=== PATIENT | male | born 1950 | race Caucasian/White ===

== ENCOUNTER → 2018-03-30 | Outpatient (CLI) | payer OTHER, BC ==
[~2018-03-30] MED LIST: ASPI325T4 PO; ATEN50TA8 PO; CITA20TA9 PO; GLC/500 PO; HYDR2.5C37; IBUP-1277 PO; IMD2X PO; PRT/20 PO; TOPI25TA55 PO; VICODIN PO
--- NOTE | 2018-03-30 17:00 | DIAGNOSTIC IMAGING REPORT ---
CHEST 2 VIEWS ROUTINE CLINICAL HISTORY: 67 years-old Male presenting with R05 Chronic [id number]. TECHNIQUE: PA and lateral views of the chest were obtained. COMPARISON: 09/06/2012. FINDINGS: Atherosclerosis of the aortic arch. Tortuosity of the thoracic aorta. Cardiac silhouette normal in size. Mild hyperinflation. No focal opacity. No pleural effusion or pneumothorax. Degenerative changes of the thoracic spine. Cholecystectomy clips noted. IMPRESSION: 1. Findings suggest emphysema. No focal infiltrate to suggest pneumonia. Electronically signed by: Sergo Abreu M.D. 03/30/2018 4:58 PM Dictated Date/Time: 03/30/2018 4:58 PM
== END | disposition home or self-care (01) ==
LOC: C.RAD1850 15:34
PROVIDERS: ATTEND Physician Assistant
DX: R05 Cough (principal)

== ENCOUNTER 2024-03-16 05:30 | Inpatient (IN) ==
--- NOTE | 2024-02-16 13:35 | Anesthesiology Consultation ---
Date of Service February 16, 2024 Assessment & Plan (1) Encounter for pre-operative examination: - Check BSG AM DOS - Infectious disease screening: Per assessment on 02/10/24: No known recent infectious disease contacts or current infectious disease symptoms. - Cardiology visit (10/21/23): "Coronary artery disease: No current symptoms. he is mainly limited by dyspnea. No concerning chest pains. Will continue aggressive secondary prevention with daily aspirin and atorvastatin. History of bradycardia and intolerance to beta-blockers.. Blood pressure actually good when measured in clinic today.. Aortic root dilation: Measured 4.2 cm. Stable.. Bradycardia: Normal rate today. Intolerance previously to beta-blockade.. Abdominal aortic aneurysm: We will repeat ultrasound.. TIA: Reported as lacunar strokes. No actual infarct. Less likely to be related atrial fibrillation. Outpatient monitoring did not reveal atrial fibrillation or concerning arrhythmia. Some mention of SVT and transient VT. However, no symptoms." - Preop BMP done 02/10/24 at [facility] hemolyzed. Per Jesus at surgeon's office, Haley Alaniz PAC aware and requests PAT arrange obtaining repeat BMP preoperatively. BMP order faxed to [facility] lab per patient request (lab confirmed with [facility] secretary office clerk that order was received)- to have done "in near future" per patient. Patient acceptable risk for given surgery pending preop BMP ([facility] lab). Chart Review Chart Review: Patient seen in Pre Admission Testing (02/10/24) History Surgery Operation Date: 03/16/24 09:45 Proposed Procedures p Percutaneous Endovascular Repair - Brian Reid MD Height/Weight Height: 5 ft 9 in Weight: 104.326 kg Allergies Allergy/AdvReac Type Severity Reaction Status Date / Time bee venom protein (honey bee) Allergy Severe Anaphylaxis Verified 02/16/24 10:33 adhesive tape Allergy Mild Rash Verified 02/16/24 10:33 house dust mite Allergy Mild sneezing, Verified 02/16/24 10:33 watery eyes budesonide [From Symbicort] Allergy Unknown Unknown Verified 02/16/24 10:33 formoterol [From Symbicort] Allergy Unknown Unknown Verified 02/16/24 10:33 simvastatin Allergy Unknown Unknown Verified 02/16/24 10:33 vardenafil [From Levitra] Allergy Unknown Unknown Verified 02/16/24 10:33 Medications Home Medications Medication Instructions Recorded Confirmed Last Taken aspirin 81 mg tablet,delayed 81 mg PO QAM 08/06/18 02/16/24 10/06/21 release (Kari Low Dose Aspirin) citalopram 10 mg tablet 10 mg PO QAM 08/06/18 02/16/24 10/08/21 loperamide 2 mg capsule 2 mg PO Q3H PRN Diarrhea 08/06/18 02/16/24 Unknown pantoprazole 40 mg tablet,delayed 40 mg PO BID 08/06/18 02/16/24 10/07/21 release Lactobacillus 2 - 3 cap PO BID 06/07/19 02/16/24 10/07/21 acidophilus-Bifidobac.animalis 31 billion cell capsule nitroglycerin 0.4 mg sublingual 0.4 mg sublingual Q5M PRN Chest 06/07/19 02/16/24 Unknown tablet Pain nebulizers #1 ea 07/01/19 02/10/24 Unknown chlorpheniramine maleate 4 mg 4 mg PO Q6H PRN Allergy Symptoms 04/17/20 02/16/24 Unknown tablet (Allergy Relief (chlorpheniramine)) tiotropium bromide 2.5 2 inh inhalation QAM 03/29/21 02/16/24 10/06/21 mcg/actuation mist for inhalation (Spiriva Respimat) CPAP Machine #1 ea 04/23/21 02/10/24 Unknown acetaminophen 325 mg tablet 975 mg PO TID 09/27/21 02/16/24 Unknown amlodipine 5 mg tablet 5 mg PO QAM 09/27/21 02/16/24 10/08/21 fluticasone propionate 50 1 spray intranasal DAILY PRN 09/27/21 02/16/24 10/06/21 mcg/actuation nasal Allergy Symptoms spray,suspension (Flonase Allergy Relief) ipratropium 0.5 mg-albuterol 3 mg 3 ml inhalation TID PRN Shortness 09/27/21 02/16/24 10/06/21 (2.5 mg base)/3 mL nebulization Of Breath soln losartan 50 mg tablet 100 mg PO QAM 09/27/21 02/16/24 10/08/21 multivitamin 1 tab PO QAM 09/27/21 02/16/24 10/07/21 triamcinolone acetonide 0.1 % 1 applic topical DAILY 04/14/23 02/16/24 Unknown topical cream atorvastatin 40 mg tablet 40 mg PO HS 10/21/23 02/16/24 Unknown ibuprofen 200 mg tablet (Motrin IB) 200 mg PO BID 10/21/23 02/16/24 Unknown Cbd Oil 2 - 3 drp PO HS 02/10/24 02/16/24 Unknown Mucinex 1 tab PO DAILY PRN Congestion 02/10/24 02/16/24 Unknown metformin 500 mg tablet 500 mg PO BID 02/10/24 02/16/24 Unknown Past Medical History Medical History AAA (abdominal aortic aneurysm) Abdomen/Pelvis CT 01/2024: AAA measures up to 5.7 x 4.5 cm, just proximal to the bifurcation Anxiety and depression Aortic root dilation Barretts esophagus BPH with obstruction/lower urinary tract symptoms CAD (coronary artery disease) Stents x2 (2014) Chronic kidney disease (CKD) Per records Diabetes mellitus, type 2 NIDDM Gastric cancer 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, multiple endoscopic resections, s/p [facility] GERD (gastroesophageal reflux disease) History of [place] (myocardial infarction) 2014 Hx of agent [place] exposure Hx of colonic polyps Hx of renal calculi Hyperlipidemia Hypertension Lumbar stenosis Melanoma Facial, s/p excision NICKI (obstructive sleep apnea) 2L O2 + CPAP HS PTSD (post-traumatic stress disorder) Pulmonary emphysema Scrotal mass No surgical intervention recommended, under surveillance Venous insufficiency Past Family History Family History Father Cirrhosis Mother Alzheimer disease Other No family history of adverse response to anesthesia Past Surgical History Surgical History H/O lumbosacral spine surgery History of anesthesia reaction "Tends to get a lot of mucous buildup in throat during procedures" History of cardiac cath 2015- stents x2 History of esophagogastroduodenoscopy (EGD) History of lumbar spinal fusion L4-L5 History of tooth extraction History of uvulopalatopharyngoplasty 30 years ago Hx of arthroscopy of shoulder right Hx of bilateral cataract extraction Hx of cholecystectomy Hx of colonoscopy Hx of lithotripsy Hx of melanoma excision Face Hx of shoulder surgery right Social History Smoking Status: Current every day smoker tobacco type: cigarettes Smoking cigarettes per day: 20 Do You Dip or Chew Tobacco: No Hx Alcohol Use: Yes (quit 40 years ago) Hx Substance Use: Yes (quit 40 years ago) substance use type: former substance user, marijuana, crack/cocaine, sedatives and methamphetamine Review of Systems *ROS Per PAT visit 02/10/24* COPD exacerbation 10/2023- s/p abx/solu-medrol. Patient notes resolution in symptoms and denies shortness of breath, cough or wheezing at PAT visit 02/11/24. Chest CT done 02/02/24- "There is no pneumothorax or pleural effusion. There is moderate emphysema. No consolidation is identified to suggest pneumonia." Patient denies chest pain, fever, chills, palpitations. Physical Exam *Vitals + Physical exam Per PAT visit 02/10/24* Vitals BP 120/70 P 60 TEMP 97.7 SP02 95%RA RESP 16 Physical Mildly decreased cervical extension range of motion. Full TMJ range of motion. TMD 3 finger breaths Mallampati Score 3 (macroglossia) Dentition: full upper/lower plates with implants Lungs: course breath sounds Cardiac: regular rate and rhythm, distant heart sounds Spine: normal Carotid arteries: negative bruit Extremities: no LE edema Lab Results Anesthesia Preop Results Results Anesthesia Widget: WBC 6.38 K/ul (4.8-10.8) 02/10/24 Hgb 15.1 g/dl (14.0-18.0) 02/10/24 Hct 45.6 % (42.0-52.0) 02/10/24 Plt 229 K/uL (130-400) 02/10/24 PT 11.0 Seconds (9.0-12.0) 02/10/24 PTT 27 Seconds (21-31) 02/10/24 INR 1.0 (0.9-1.1) 02/10/24 Blood Type O Positive 02/10/24 Antibody Screen NEGATIVE 02/10/24 Testing Laboratory Results HGBA1C (10/21/23): 7.2% Electrocardiogram Date: 11/19/23 SR with first degree AVB at 95bpm. Anteroseptal infarct (cited on or before 03/25/2023 per [employer] [facility] comparison. Echo done 07/2023). Echocardiogram Date: 08/06/23 EF 55-60%. No interatrial shunt. LV wall motion is normal. Mild concentric LVH. Grade 1 diastolic dysfunction. Focal thickening of the basal septum with no evidence of LV outflow obstruction. Mild MR. Other Testing Abdomen/Pelvis CT Date: 02/02/24 1. Abdominal aortic aneurysm, as described above. The aorta measures up to 5.7 x 4.5 cm, just proximal to the bifurcation. Aneurysmal dilatation of the bilateral common iliac arteries. Extensive aortoiliac atherosclerotic plaque. 2. Extensive colonic diverticulosis. No evidence for acute diverticulitis. 3. Left nephrolithiasis. 7 mm suspected bladder calculus. Less likely, this calculus could be at the right ureterovesical junction. No hydronephrosis. Low dose Lung CT Date: 02/02/24 FINDINGS: Unremarkable thyroid. There are no pathologically enlarged axillary, mediastinal or hilar lymph nodes. There is no pericardial effusion. Size the heart is normal. Extensive coronary calcification is again noted. Fusiform dilation of the ascending thoracic aorta measures 4.3 cm, unchanged. There is no pneumothorax or pleural effusion. There is moderate emphysema. No consolidation is identified to suggest pneumonia. Similar appearance of the subsegmental right basilar opacities suggestive of atelectasis/scarring. A 4 mm right upper lobe pulmonary nodule on axial image 124 is unchanged since chest CT of October 12, 2018. This is likely benign. 4 mm solid nodule the right upper lobe on image 101 series 4 previously measured 3 mm. Stable 3 mm solid nodule in the right middle lobe on image 217. No new pulmonary nodules are present. IMPRESSION: Emphysema with subsegmental right basilar opacities favor atelectasis versus scarring. There are a few low suspicion solid pulmonary nodules measuring up to 4 mm. Fusiform dilation of the ascending thoracic aorta, 4.3 cm.
[2024-03-16 06:13] LABS: BUN Creatinine Ratio 15.6 (10-20); Calcium 10.3 mg/dl (8.6-10.3); Creatinine Clr Calc Pharmacy 58.9 ml/min; Est GFR (Non-African American) 54.4 ml/min; Potassium 4.1 mmol/L (3.5-5.1)
[2024-03-16] MEDS: LACTATED RINGER'S 1,000 ML BAG IV SCH (06:55)
[2024-03-16] MEDS ORDERED: fentaNYL citrate PF 100 MCG/2 ML VIAL ONE ×3 (07:18→09:45)
[2024-03-16] MEDS ORDERED: ALBUMIN HUMAN 5% 12.5 GM/250 ML VIAL IV ONE (07:23)
[2024-03-16] MEDS ORDERED: ROCURONIUM BROMIDE 10 MG/ML 5 ML VIAL IV ONE ×2 (07:41→09:25)
[2024-03-16] MEDS ORDERED: LIDOCAINE 2% 2 ML VIAL/AMP(20MG/ML) INFIL ONE (07:41)
[2024-03-16] MEDS ORDERED: PROPOFOL IV EMULSION 10 MG/ML 20 ML VIAL IV ONE (07:41)
--- NOTE | 2024-03-16 07:43 | History & Physical Report ---
Date of Service March 16, 2024 Assessment & Plan (1) AAA (abdominal aortic aneurysm) without rupture: Plan: Patient is admitted for a PEvar of his AAA. I have discussed the risks options and benefits of the procedure with the patient. The patient understands the risks options and benefits and agrees to the procedure. History of Present Illness Chief Complaint: AAA Primary Care Provider: Lucio Mercado MD Mr. Kwon is an elderly male who presents to vascular surgery clinic in consultation for abdominal aortic aneurysm. Patient is known about this for a number of years, and has been undergoing regular surveillance ultrasounds of this. He had a recent surveillance ultrasound which demonstrated his aneurysm to have grown to 5.8 cm in its largest diameter. The last measurement of record is an aortoiliac ultrasound performed in 2021, at which time it measured 4.4 cm. Patient denies any complaints or concerns at this time. He states that he will occasionally get some bilateral knee pain, and that he occasionally gets some shortness of breath with exertion, but otherwise feels that he is in his usual state of health. He does have known emphysema, possibly COPD. He also has a history of obstructive sleep apnea and coronary disease. He denies headache, fever, chest pain, shortness of breath, abdominal pain, nausea, vomiting, rest pain, claudication, nonhealing wounds or ulcers, edema, other complaints. Allergies Allergy/AdvReac Type Severity Reaction Status Date / Time bee venom protein (honey bee) Allergy Severe Anaphylaxis Verified 03/16/24 05:55 adhesive tape Allergy Mild Rash Verified 03/16/24 05:55 house dust mite Allergy Mild sneezing, Verified 03/16/24 05:55 watery eyes budesonide [From Symbicort] Allergy Unknown Unknown Verified 03/16/24 05:55 formoterol [From Symbicort] Allergy Unknown Unknown Verified 03/16/24 05:55 simvastatin Allergy Unknown Unknown Verified 03/16/24 05:55 vardenafil [From Levitra] Allergy Unknown Unknown Verified 03/16/24 05:55 Home Medications Medication Instructions Recorded Confirmed Type aspirin 81 mg tablet,delayed 81 mg PO QAM 08/06/18 03/16/24 History release (Kari Low Dose Aspirin) citalopram 10 mg tablet 10 mg PO QAM 08/06/18 03/16/24 History loperamide 2 mg capsule 2 mg PO Q3H PRN Diarrhea 08/06/18 03/16/24 History pantoprazole 40 mg tablet,delayed 40 mg PO BID 08/06/18 03/16/24 History release Lactobacillus 2 - 3 cap PO BID 06/07/19 03/16/24 History acidophilus-Bifidobac.animalis 31 billion cell capsule nitroglycerin 0.4 mg sublingual 0.4 mg sublingual Q5M PRN Chest 06/07/19 03/16/24 History tablet Pain nebulizers #1 ea 07/01/19 03/02/24 Rx chlorpheniramine maleate 4 mg 4 mg PO Q6H PRN Allergy Symptoms 04/17/20 03/16/24 History tablet (Allergy Relief (chlorpheniramine)) tiotropium bromide 2.5 2 inh inhalation QAM 03/29/21 03/16/24 History mcg/actuation mist for inhalation (Spiriva Respimat) CPAP Machine #1 ea 04/23/21 03/02/24 Rx acetaminophen 325 mg tablet 975 mg PO TID 09/27/21 03/16/24 History amlodipine 5 mg tablet 5 mg PO QAM 09/27/21 03/16/24 History fluticasone propionate 50 1 spray intranasal DAILY PRN 09/27/21 03/16/24 History mcg/actuation nasal Allergy Symptoms spray,suspension (Flonase Allergy Relief) ipratropium 0.5 mg-albuterol 3 mg 3 ml inhalation TID PRN Shortness 09/27/21 03/16/24 History (2.5 mg base)/3 mL nebulization Of Breath soln losartan 50 mg tablet 100 mg PO QAM 09/27/21 03/16/24 History multivitamin 1 tab PO QAM 09/27/21 03/16/24 History triamcinolone acetonide 0.1 % 1 applic topical DAILY 04/14/23 03/16/24 History topical cream atorvastatin 40 mg tablet 40 mg PO HS 10/21/23 03/16/24 History ibuprofen 200 mg tablet (Motrin IB) 200 mg PO BID 10/21/23 03/16/24 History Cbd Oil 2 - 3 drp PO HS 02/10/24 03/16/24 History Mucinex 1 tab PO DAILY PRN Congestion 02/10/24 03/16/24 History metformin 500 mg tablet 500 mg PO BID 02/10/24 03/16/24 History Past Med/Surg History Problem List (Updated 03/16/24 @ 07:43 by Brian Reid MD) AAA (abdominal aortic aneurysm) without rupture Hypomagnesemia Elevated PSA Medical History Lumbar stenosis History of [place] (myocardial infarction) 2015 Aortic root dilation CAD (coronary artery disease) Stents x2 (2014) Venous insufficiency Scrotal mass No surgical intervention recommended, under surveillance Pulmonary emphysema PTSD (post-traumatic stress disorder) NICKI (obstructive sleep apnea) 2L O2 + CPAP HS Hx of agent [place] exposure Hypertension Hyperlipidemia Hx of colonic polyps GERD (gastroesophageal reflux disease) Diabetes mellitus, type 2 NIDDM Chronic kidney disease (CKD) Per records BPH with obstruction/lower urinary tract symptoms Barretts esophagus AAA (abdominal aortic aneurysm) Abdomen/Pelvis CT 01/2024: AAA measures up to 5.7 x 4.5 cm, just proximal to the bifurcation Gastric cancer 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, multiple endoscopic resections, s/p [facility] Melanoma Facial, s/p excision Hx of renal calculi Anxiety and depression Surgical History History of anesthesia reaction "Tends to get a lot of mucous buildup in throat during procedures" H/O lumbosacral spine surgery Hx of shoulder surgery right Hx of cholecystectomy History of uvulopalatopharyngoplasty 30 years ago Hx of arthroscopy of shoulder right Hx of lithotripsy Hx of melanoma excision Face Hx of bilateral cataract extraction Hx of colonoscopy History of tooth extraction History of cardiac cath 2015- stents x2 History of lumbar spinal fusion L4-L5 History of esophagogastroduodenoscopy (EGD) Family History Father Cirrhosis Mother Alzheimer disease Other No family history of adverse response to anesthesia Social History Smoking Status: Current every day smoker Tobacco Type: Cigarettes Age Started Using Tobacco: 13; packs per day: 1; Cigarettes Per Day: 20; Second Hand Exposure: No; Do You Dip or Chew Tobacco: No; Tobacco Cessation Education Requested by Patient: No Hx Alcohol Use: Yes (quit 40 years ago) Hx Substance Use: Yes (quit 40 years ago) Preferred Language: Nepali Communication Ability: Effective Diagrammer Required: No Beliefs That Will Affect Care: None marital status: Current Living Situation: Spouse Other Information That Helps Us Care for You: No Feels Safe at Home: Yes Safety Concerns: Feels Safe At This Time Assistive Devices: CPAP, Glasses, Oxygen - at Night and Other Assistive Devices Comment: implanted teeth Review of Systems All systems reviewed & are unremarkable except as noted in HPI & below Physical Exam Physical Exam: Constitutional: In general patient is obese but healthy-appearing well-nourished well-developed elderly male no distress. He is alert and oriented without any focal deficits. His trachea is midline. His carotids do not demonstrate a bruit. His heart is regular with systolic ejection murmur. His lungs are decreased throughout with coarse sounding breath sounds and moderate wheezing. His abdomen is protuberant due to body habitus and is somewhat firm but nontender. He has normoactive bowel sounds throughout. I am unable to appreciate a pulsatile mass due to body habitus. Brachial and radial pulses are +4. Femoral pulses are +3. Lower extremities a pulses are +3. He has brisk capillary refill and no sign of distal ischemia. He has trace edema of the lower legs. CT angiogram shows an infrarenal abdominal attic aneurysm measuring 5.8 cm in size. It does have a good neck conducive for endograft repair. Results & Data Vital Signs (Past 12 Hours) Vital Signs Temp Pulse Resp BP Pulse Ox O2 Del Method 03/16/24 06:00 Room Air 03/16/24 05:47 36.7 C 60 20 155/99 H 94 Room Air
[2024-03-16] MEDS: CEFAZOLIN 2,000 MG/15 ML SYR IV SCH (07:48)
[2024-03-16] MEDS ORDERED: ESMOLOL HCL INJ 10 MG/ML 10ML VIAL IV ONE (08:46)
[2024-03-16] MEDS ORDERED: HEPARIN SOD (PORCINE) 1000 UNIT/ML ONE (08:46)
[2024-03-16] MEDS ORDERED: PHENYLEPHRINE HCL 25 MG/250 ML NSS IV ONE (09:12)
[2024-03-16] MEDS ORDERED: NITROGLYCERIN/D5W 100 MCG/ML BTL ONE (09:15)
[2024-03-16] MEDS ORDERED: DEXAMETHASONE SOD INJ 4 MG/ML VIAL ONE (09:19)
[2024-03-16] MEDS ORDERED: ePHEDrine sulfate 50 MG/5 ML SYR ONE (09:50)
[2024-03-16] MEDS ORDERED: LABETALOL HCL IV 5 MG/ML 20ML IV ONE (10:05)
[2024-03-16] MEDS ORDERED: SUGAMMADEX SODIUM 200 MG/2 ML VIAL IV ONE ×2 (10:15→10:16)
--- NOTE | 2024-03-16 10:39 | Procedure Note ---
Angiogram Post Procedure Fluoroscopy Time (minutes): 31.2 Radiation (mGy): 982 Contrast: 90 Post Operative Report Pre & Post Diagnosis Operation Date: 03/16/24 07:30 Pre-Op Diagnosis: Abdominal Aortic Aneurysm, Without Rupture Post-Op Diagnosis: Abdominal Aortic Aneurysm, Without Rupture I identified the patient and participated in the time-out.: Yes Procedure Operation Date: 03/16/24 07:30 Actual Procedures p Percutaneous Endovascular Aneurysm Repair, Right Iliac Extension, Mechanical Closure of Left Femoral Artery, Right common femoral artery exposure - Brian Reid MD Surgeon Brian Reid MD Stack Clerk Monico,PAC Estimated Blood Loss 200 Findings Consistent with Post-Op Diagnosis Specimens none Anesthesia Type General Complications none Disposition Accompanied Patient To Recovery: No Disposition: Recovery Room Indications This is a 73-year-old gentleman who was found to have a 5.8 cm. Endovascular repair is recommended. I have discussed the risks options and benefits of the procedure with the patient. The patient understands the risks options and benefits and agrees to the procedure. Description of Procedure The patient was brought to the OR and placed in supine position. Patient was intubated and general anesthesia was accomplished. A safety timeout was performed to identify patient's name, date of and the correct procedure. Abdomen and groins were prepped and draped in sterile fashion. Ultrasound guided percutaneous access of the right groin was performed. The right common femoral artery was patent. A percutaneous puncture was made in the right common femoral artery using ultrasound. The depth finder for the Manta device was used to measure the depth of the puncture. It was found to be 6 cm. The depth finder was removed and the 8 [place] sheath inserted. We turned our attention to the left side and we similarly accessed the left common femoral artery. The left common femoral artery was patent. Using ultrasound left common femoral artery was punctured. The depth finder was used to measure the depth of the puncture of the left side and also found to be 7 cm from the skin edge. This was removed and 8 [place] sheath was inserted. Patient was heparinized with 9000 of IV heparin. Through the right groin, we advanced a soft Glidewire followed by a Kumpe catheter. The wire then was exchanged for a stiff Lunderquist wire. We then cannulated the aorta from the left side using 035 Glidewire and a Kumpe catheter. Once this was placed in the super renal aorta the wire was exchanged to a Cem wire.. We then upsized our access on the right side with a 14 [place] African dilator and subsequently to 18 [place] African dry seal sheath. The left groin sheath was then exchanged to a 16 [place] dry seal sheath after dilating with a 12 South African. The sheaths were advanced all the way up in the aortic sac. A marker pig was inserted to the left groin. Aortography was performed. The level of the renal arteries were marked on the screen. This showed patency of both renal arteries and a acceptable neck for deployment of the graft. We advanced the device (Aurora excluder conformable 36 mm x 14.5 mm x 14 cm) through the right sheath. The shaft of the graft was then deployed. An aortogram was performe d. Both renal arteries were visualized just above the top of the deployed graft. Aortogram confirmed good location of the proximal end of the graft. The hooks were then deployed. Cannulation of the gate was then attempted using an 035 glidewire and a Kumpke catheter. The gate cannulated therefore tried a symptoms followed by JB2 catheter. Again the date cannot be cannulated. We then deployed the right limb of the graft device. Inserted 035 wire through the right side followed by the same catheter. The contralateral gate was cannulated with a wire from the right side and passed into the sac. A snare was inserted through the left-sided sheath. The wire was snared and brought out through the left groin. The cath was inserted to the left side and advanced up into the graft. The wire was pulled out. It was advanced into the main body. It spun easily. The Lunderquist wire was then reinserted. A marker pigtail was then inserted over the Plunkett wire. The 16 [place] sheath was then pulled down into the external iliac and an arteriogram was performed of the left iliac system. This identified the origin of the hypogastric and the left side. We then removed the pigtail. We reinserted a 16 [place] African sheath dilator and advanced the sheath into the gate of the graft. We then inserted an 16mm x 27 mm x 12 contralateral limb. The 16 [place] sheath was then pulled down to below the level of the contralateral limb. Contralateral limb was then deployed without difficulty. The 18 [place] African sheath on the right side was then pulled down into the pelvis. Hand-injection was then performed to karen where the bifurcation of the common iliac artery was. We then chose a 16 x 27 x 10 contralateral limb to extend the right side limb. The graft was advanced to the 18 [place] African sheath. It was deployed with the distal end falling just above the iliac bifurcation. The mob balloon was then inserted through the left sheath. The proximal attachment site, the gate and the distal attachment site were ballooned with the mob balloon. The balloon was then removed. Was inserted through the right side 18 [place] African sheath and then dilated the overlap of the limbs and the distal attac hment site of the right limb. The balloon was then removed. The pigtail was then inserted through the left side to above the renal arteries. A final arteriogram was then performed which showed no evidence of a type I or II endoleak. Graft showed no evidence of narrowing throughout. An Lunderquist was then reinserted into the pigtail and the pigtail removed. The 16 [place] sheath was then pulled and a 18 [place] African Manta device was inserted. This was deployed without difficulty. No bleeding was noted after deployment. The right groin sheath was then also pulled. An 18 [place] Manta device was inserted and deployed. There was not a total seal of the right side. There is still some weakness seen and a partial take was noted. Holding off on screening of the Manta had bleeding controlled fairly well. Groin incision was then made. This was carried out where the puncture site was noted. There is a small area to the right side of the Manta which was bleeding and that superiorly sealed with a Manta device. The compromised and clamped proximal to the stent. The Manta plug was removed with a footplate. The defect of the artery was repaired with a 5-0 Prolene suture. Hemostasis was noted. Good distal flow was seen. Wound was then closed in the usual fashion with a running 2-0 Vicryl suture and femoral sheath and 3-0 Vicryl for subcutaneous layer joyce for the skin. Prev darren dressing was used for the incision on the right side. Sterile dressings were applied to the wound on the left groin. The patient left the operation room in satisfactory condition and tolerated the procedure well. All needle and sponge counts were correct at the end of the procedure. Haley Alaniz Pac assisted due to lack of resident availability and was necessary for positioning, draping, retraction, wound closure deep layers, subcutaneous tissue, and skin closure and was necessary for assisting with the case. I attest to the content of the Intraoperative Record and any orders documented therein. Any exceptions are noted below.
[2024-03-16] MEDS: VISIPAQUE IV PRN (11:14)
[2024-03-16 11:18] LABS: Hematocrit (blood only) 42.8 % (42.0-52.0); Hemoglobin 14.4 g/dl (14.0-18.0)
[2024-03-16] MEDS: ALBUTEROL 0.083% NEBU SOLN 3 ML VIAL ONE (11:22)
[2024-03-16] MEDS ORDERED: ALBUTEROL 0.083% NEBU SOLN 3 ML VIAL NEB PRN (11:25)
[2024-03-16] MEDS ORDERED: ALBUT/IPRATROP 3MG/0.5MG NEB 3 ML VIAL INH PRN (12:59)
[2024-03-16] MEDS ORDERED: NON-FORMULARY MEDICATION (Cpap Machine misc) SCH (12:59)
[2024-03-16] MEDS ORDERED: MoRPHine SULFATE 4 MG/ML 1 ML CARP\\VIAL IV PRN (12:59)
[2024-03-16] MEDS ORDERED: LOPERAMIDE HCL 2 MG CAP PO PRN (12:59)
[2024-03-16] MEDS ORDERED: NITROGLYCERIN SL 0.4 MG/TAB TAB SL PRN (12:59)
[2024-03-16] MEDS ORDERED: PHARMACY GLYCEMIC MGMT CONSULT PRN (12:59)
[2024-03-16] MEDS ORDERED: FLUTICASONE PROPIONATE NA SPR 16 GM BTL PRN (12:59)
[2024-03-16] MEDS ORDERED: NON-FORMULARY MEDICATION (Chlorpheniramine Maleate [Allergy Relief(Chlorpheniramn)] 4 mg t PO PRN (12:59)
[2024-03-16] MEDS ORDERED: guaiFENesin 600 MG TABCR PO PRN (13:18)
[2024-03-16] MEDS: D5W AND 1/2NSS 1,000 ML IV SCH (13:24)
--- NOTE | 2024-03-16 13:26 | Anesthesiology Progress Note ---
Date of Service March 16, 2024 Anesthesia Post Procedure Vital Signs Vital Signs: Temp Pulse Pulse Resp BP BP Pulse Ox 03/16/24 12:50 03/16/24 12:10 58 L 17 107/44 L 111/61 89 L 03/16/24 12:00 59 L 18 102/46 L 112/64 90 03/16/24 11:50 62 20 105/47 L 103/58 L 88 L 03/16/24 11:40 36.7 C 60 16 113/57 L 108/47 L 90 03/16/24 11:30 59 L 18 117/56 L 100/59 L 97 03/16/24 11:20 65 18 112/59 L 100/89 88 L 03/16/24 11:10 61 16 112/68 130/55 L 89 L 03/16/24 11:00 62 16 113/61 133/56 L 93 03/16/24 10:50 65 18 124/64 142/61 H 93 03/16/24 10:43 36.2 C L 68 16 117/68 123/77 93 03/16/24 06:00 03/16/24 05:47 36.7 C 60 20 155/99 H 94 O2 Del Method O2 Flow Rate 03/16/24 12:50 Nasal Cannula 5 03/16/24 12:10 Nasal Cannula 4 03/16/24 12:00 Nasal Cannula 4 03/16/24 11:50 Nasal Cannula 4 03/16/24 11:40 Nasal Cannula 4 03/16/24 11:30 Nebulizer 03/16/24 11:20 Nasal Cannula 4 03/16/24 11:10 Nasal Cannula 4 03/16/24 11:00 Oxymask 10 03/16/24 10:50 Oxymask 10 03/16/24 10:43 Oxymask 10 03/16/24 06:00 Room Air 03/16/24 05:47 Room Air Transfer of Care Handoff Completed per policy Notes Mental Status: alert / awake / arousable Patient Amnestic to Procedure: Yes Nausea / Vomiting: adequately controlled Pain: adequately controlled Airway Patency, RR, SpO2: stable & adequate BP & HR: stable & adequate Hydration State: stable & adequate Anesthetic Complications: no major complications apparent
--- NOTE | 2024-03-16 13:28 | Pharmacy Report ---
Pharmacy Glycemic Short Note 2 - Date of Service March 16, 2024 - Glycemic Short BSG Results (Last 24 hours): 03/16/24 03/16/24 03/16/24 05:39 05:51 10:51 Glucose 147 H POC Glucose 179 H 203 H OUTPATIENT ANTIDIABETIC REGIMEN: * Metformin 500 mg PO BIDM * HbA1c pending for 03/17/24 ASSESSMENT: * 73 yo M admitted on 03/16/24 postoperatively following a PEVAR with Dr. Reid. Pharmacy has been consulted to assist with inpatient glycemic management. Patient is a Type 2 diabetic as an outpatient. Please refer to outpatient regimen and most recent HbA1c above. Most recent A1c was 7.2% in September 2023. * BSGs today were 179 mg/dL and 203 mg/dL. Does appear to have received 4 mg of IV dexamethasone intraoperatively, no ongoing steroids. Ordered a T2DM diet, will follow to see if he tolerates. Is ordered D5 1/2 NS at 125 mL/hr for now. * Will start Novolog ACHS based on weight/stress of 2-3 with goal of 110-140 mg/dL to prevent postoperative infection. Will give a one time dose of basal at 0.2 units/kg. Reassess basal in AM. PLAN FOR INPATIENT GLYCEMIC CONTROL: * Hold outpatient oral diabetes medications * Basal insulin * Lantus 20 units SC x 1 * Bolus insulin * NovoLog per scale ACHS or Q6hrs while NPO * Goal Range: Low 110 mg/dL - High 140 mg/dL * Correction Factor: 20 mg/dL/unit * Nutritional / Prandial insulin per carb ratio of 1 unit per 7 grams CHO consumed
[2024-03-16] MEDS ORDERED: GLUCOSE 10 TAB/TUBE PO PRN (13:30)
[2024-03-16] MEDS ORDERED: GLUCAGON FOR INJ 1 MG VIAL IM PRN (13:30)
[2024-03-16] MEDS ORDERED: CARBOHYDRATES FOR HYPOGLYCEMIA PO PRN (13:30)
[2024-03-16] MEDS ORDERED: GLUCOSE 40% GEL 15 GM TUBE PO PRN (13:30)
[2024-03-16] MEDS ORDERED: DEXTROSE 50% 50 ML SYRINGE IV PRN (13:30)
--- NOTE | 2024-03-16 14:09 | Critical Care Consultation ---
Date of Consultation March 16, 2024 Assessment & Plan (1) AAA (abdominal aortic aneurysm) without rupture: (2) NICKI (obstructive sleep apnea): (3) Hypertension: (4) Chronic kidney disease (CKD): (5) AAA (abdominal aortic aneurysm): (6) CAD (coronary artery disease): (7) Pulmonary emphysema: Plan -- Abdominal aortic aneurysm S/p PEVAR by Dr. Reid on 03/16/2024 Monitor H&H Monitor for any signs of bleeding Continue with atorvastatin -- Hypertension On amlodipine as well as losartan at home Continue with the same regimen -- NICKI On CPAP of 12 cm H2O Following up with Dr. Jiang -- COPD On Spiriva at home -- Anxiety/PTSD --Prophylaxis VTE: None GI: Pantoprazole Lines: Left radial, peripheral, Swan Diet: Cardiac Plan: Strict in and out Monitor H&H Patient has history of PTSD and usually gets really anxious while he is in the hospital. Will put him on low-dose clonazepam. Would recommend CPAP to be used if the patient is drowsy after this. Please note the above document was generated using voice recognition software. It may contain grammatical, syntax or spelling errors.Any formal questions or concerns about the content, text or information contained within the body of this dictation should be directly addressed to the provider for clarification. History of Present Illness Attending Physician: Brian Reid MD History of Present Illness 73-year-old male came to the hospital to have PeVAR Past medical history: NICKI, COPD, hypertension, peripheral vascular disease, GERD, PTSD Patient was transferred to the ICU for postop care At the time of examination patient's was in the room. Systolic blood pressure was in the 140s-150s. He complained of some retrosternal burning which he gets on and off after eating and relates to reflux No nausea or vomiting Denies any shortness of breath, no cough. He does use his CPAP machine for his sleep apnea. He is compliant with it. No headache, no blurry vision Social history: > 54-yexm-jcag smoking history. Allergies Allergy/AdvReac Type Severity Reaction Status Date / Time bee venom protein (honey bee) Allergy Severe Anaphylaxis Verified 03/16/24 05:55 adhesive tape Allergy Mild Rash Verified 03/16/24 05:55 house dust mite Allergy Mild sneezing, Verified 03/16/24 05:55 watery eyes budesonide [From Symbicort] Allergy Unknown Unknown Verified 03/16/24 05:55 formoterol [From Symbicort] Allergy Unknown Unknown Verified 03/16/24 05:55 simvastatin Allergy Unknown Unknown Verified 03/16/24 05:55 vardenafil [From Levitra] Allergy Unknown Unknown Verified 03/16/24 05:55 Home Medications Medication Instructions Recorded Confirmed Type aspirin 81 mg tablet,delayed 81 mg PO QAM 08/06/18 03/16/24 History release (Kari Low Dose Aspirin) citalopram 10 mg tablet 10 mg PO QAM 08/06/18 03/16/24 History loperamide 2 mg capsule 2 mg PO Q3H PRN Diarrhea 08/06/18 03/16/24 History pantoprazole 40 mg tablet,delayed 40 mg PO BID 08/06/18 03/16/24 History release Lactobacillus 2 - 3 cap PO BID 06/07/19 03/16/24 History acidophilus-Bifidobac.animalis 31 billion cell capsule nitroglycerin 0.4 mg sublingual 0.4 mg sublingual Q5M PRN Chest 06/07/19 03/16/24 History tablet Pain nebulizers #1 ea 07/01/19 03/02/24 Rx chlorpheniramine maleate 4 mg 4 mg PO Q6H PRN Allergy Symptoms 04/17/20 03/16/24 History tablet (Allergy Relief (chlorpheniramine)) tiotropium bromide 2.5 2 inh inhalation QAM 03/29/21 03/16/24 History mcg/actuation mist for inhalation (Spiriva Respimat) CPAP Machine #1 ea 04/23/21 03/02/24 Rx acetaminophen 325 mg tablet 975 mg PO TID 09/27/21 03/16/24 History amlodipine 5 mg tablet 5 mg PO QAM 09/27/21 03/16/24 History fluticasone propionate 50 1 spray intranasal DAILY PRN 09/27/21 03/16/24 History mcg/actuation nasal Allergy Symptoms spray,suspension (Flonase Allergy Relief) ipratropium 0.5 mg-albuterol 3 mg 3 ml inhalation TID PRN Shortness 09/27/21 03/16/24 History (2.5 mg base)/3 mL nebulization Of Breath soln losartan 50 mg tablet 100 mg PO QAM 09/27/21 03/16/24 History multivitamin 1 tab PO QAM 09/27/21 03/16/24 History triamcinolone acetonide 0.1 % 1 applic topical DAILY 04/14/23 03/16/24 History topical cream atorvastatin 40 mg tablet 40 mg PO HS 10/21/23 03/16/24 History ibuprofen 200 mg tablet (Motrin IB) 200 mg PO BID 10/21/23 03/16/24 History Cbd Oil 2 - 3 drp PO HS 02/10/24 03/16/24 History Mucinex 1 tab PO DAILY PRN Congestion 02/10/24 03/16/24 History metformin 500 mg tablet 500 mg PO BID 02/10/24 03/16/24 History Patient History Medical History Lumbar stenosis History of DC (myocardial infarction) 2015 Aortic root dilation CAD (coronary artery disease) Stents x2 (2014) Venous insufficiency Scrotal mass No surgical intervention recommended, under surveillance Pulmonary emphysema PTSD (post-traumatic stress disorder) NICKI (obstructive sleep apnea) 2L O2 + CPAP HS Hx of agent [place] exposure Hypertension Hyperlipidemia Hx of colonic polyps GERD (gastroesophageal reflux disease) Diabetes mellitus, type 2 NIDDM Chronic kidney disease (CKD) Per records BPH with obstruction/lower urinary tract symptoms Barretts esophagus AAA (abdominal aortic aneurysm) Abdomen/Pelvis CT 01/2024: AAA measures up to 5.7 x 4.5 cm, just proximal to the bifurcation Gastric cancer 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, multiple endoscopic resections, s/p [facility] Melanoma Facial, s/p excision Hx of renal calculi Anxiety and depression Surgical History History of anesthesia reaction "Tends to get a lot of mucous buildup in throat during procedures" H/O lumbosacral spine surgery Hx of shoulder surgery right Hx of cholecystectomy History of uvulopalatopharyngoplasty 30 years ago Hx of arthroscopy of shoulder right Hx of lithotripsy Hx of melanoma excision Face Hx of bilateral cataract extraction Hx of colonoscopy History of tooth extraction History of cardiac cath 2015- stents x2 History of lumbar spinal fusion L4-L5 History of esophagogastroduodenoscopy (EGD) Family History Father Cirrhosis Mother Alzheimer disease Other No family history of adverse response to anesthesia Social History Smoking Status: Current every day smoker Tobacco Type: Cigarettes Age Started Using Tobacco: 13; packs per day: 1; Cigarettes Per Day: 20; Second Hand Exposure: No; Do You Dip or Chew Tobacco: No; Hx Alcohol Use: Yes (quit 40 years ago) Hx Substance Use: Yes (quit 40 years ago) Preferred Language: Citizen Of [place] Communication Ability: Effective E Learning Specialist Required: No Beliefs That Will Affect Care: None marital status: Current Living Situation: Spouse Feels Safe at Home: Yes Assistive Devices: CPAP, Glasses, Oxygen - at Night and Other Review of Systems 2 Review of Systems: All systems reviewed & are unremarkable except as noted in HPI & below Physical Exam 2 Physical Exam: Constitutional: No acute distress HEENT: EOMI, PERRLA Respiratory system: Decreased air entry bilaterally, no wheeze, no rhonchi, mild crackles bilateral lower lobes CVS: S1-S2 positive, positive 3 out of 6 systolic murmur appreciated best at the apex Abdomen: Soft, nontender, nondistended, positive bowel sounds x4, obese Extremities: +2 pulses bilaterally radialis/ dorsalis pedis, no cyanosis, no edema Neuro: Awake alert oriented x3 Psych: Normal mood and affect G/U: Positive Swan Right groin wound VAC in place, left groin bandage in place with no hematoma Skin: no rashes, warm and dry Lymphatic: no cervical or axillary lymphadenopathy Results & Data Results & Data Vital Signs (Past 12 Hours) Vital Signs Temp Pulse Pulse Resp BP BP Pulse Ox 03/16/24 12:50 03/16/24 12:10 58 L 17 107/44 L 111/61 89 L 03/16/24 12:00 59 L 18 102/46 L 112/64 90 03/16/24 11:50 62 20 105/47 L 103/58 L 88 L 03/16/24 11:40 36.7 C 60 16 113/57 L 108/47 L 90 03/16/24 11:30 59 L 18 117/56 L 100/59 L 97 03/16/24 11:20 65 18 112/59 L 100/89 88 L 03/16/24 11:10 61 16 112/68 130/55 L 89 L 03/16/24 11:00 62 16 113/61 133/56 L 93 03/16/24 10:50 65 18 124/64 142/61 H 93 03/16/24 10:43 36.2 C L 68 16 117/68 123/77 93 03/16/24 06:00 03/16/24 05:47 36.7 C 60 20 155/99 H 94 O2 Del Method O2 Flow Rate 03/16/24 12:50 Nasal Cannula 5 03/16/24 12:10 Nasal Cannula 4 03/16/24 12:00 Nasal Cannula 4 03/16/24 11:50 Nasal Cannula 4 03/16/24 11:40 Nasal Cannula 4 03/16/24 11:30 Nebulizer 03/16/24 11:20 Nasal Cannula 4 03/16/24 11:10 Nasal Cannula 4 03/16/24 11:00 Oxymask 10 03/16/24 10:50 Oxymask 10 03/16/24 10:43 Oxymask 03/16/24 06:00 Room Air 03/16/24 05:47 Room Air Laboratory Results 03/16/24 10:52 03/16/24 05:39 Coding Level of Care Code 29795 IN/OBS CONSULT LVL 4,60M Diagnoses AAA (abdominal aortic aneurysm) without rupture I71.40 NICKI (obstructive sleep apnea) G47.33 Hypertension I10 Chronic kidney disease (CKD) N18.9 AAA (abdominal aortic aneurysm) I71.40 CAD (coronary artery disease) I25.10 Pulmonary emphysema J43.9
[2024-03-16] MEDS ORDERED: LORazepam 1 MG TAB PO PRN (14:11)
[2024-03-16] MEDS: ACETAMINOPHEN 325 MG TAB PO SCH (14:29)
[2024-03-16] MEDS: LANTUS PER UNIT CHARGE SC STA (14:35)
[2024-03-16] MEDS: clonazePAM 0.5 MG TAB PO PRN (14:35)
[2024-03-16] MEDS: INSULIN ASPART PER UNIT CHARGE SC SCH (14:39)
[2024-03-16] MEDS ORDERED: LORazepam 0.5 MG TAB PO PRN (14:56)
[2024-03-16] MEDS: oxyCODONE/ACETAMINOPHEN 5mg/325mg TAB PO PRN (15:24)
[2024-03-16] MEDS: ceFAZolin 2000MG 2,000 MG/15 ML SYR IV SCH (16:49)
[2024-03-16] MEDS: IBUPROFEN 200 MG TAB PO SCH (20:01)
[2024-03-16] MEDS: PANTOprazole 40 MG TAB PO SCH (20:01)
[2024-03-16] MEDS: ATORVASTATIN 40 MG TAB PO SCH (20:02)
[2024-03-17 04:51] LABS: Basophils # (auto) 0.02 K/uL (0.00-0.20); Basophils % (auto) 0.2 %; Eosinophils # (auto) 0.04 K/uL (0.00-0.50); Eosinophils % (auto) 0.4 %; Hematocrit (blood only) 38.4 % (42.0-52.0); Hemoglobin 13.1 g/dl (14.0-18.0); Immature Granulocytes # (auto) 0.03 K/uL (0.01-0.20); Immature Granulocytes % (auto) 0.3 %; Lymphocytes # (auto) 1.78 K/uL (1.20-3.40); Lymphocytes % (auto) 18.4 %; Mean Corpuscular Hemoglobin 31.8 pg (25.0-34.0); Mean Corpuscular Hgb Conc 34.1 g/dL (32.0-36.0); Mean Corpuscular Volume 93.2 fL (80.0-100.0); Mean Platelet Volume 9.4 fL (9.4-12.4); Monocytes # (auto) 0.99 K/uL (0.11-0.59); Monocytes % (auto) 10.3 %; Neutrophils # (auto) 6.79 K/uL (1.40-6.50); Neutrophils % (auto) 70.4 %; Platelet Count 204 K/uL (130-400); RDW Coefficient of Variation 13.9 % (11.5-14.5); RDW Standard Deviation 46.5 fL (36.4-46.3); Red Blood Count 4.12 M/uL (4.70-6.10); White Blood Count 9.65 K/ul (4.8-10.8)
[2024-03-17 04:58] LABS: BUN Creatinine Ratio 19.5 (10-20); Calcium 8.7 mg/dl (8.6-10.3); Creatinine Clr Calc Pharmacy 63.9 ml/min; Est GFR (African American) 69.5 ml/min; Potassium 3.7 mmol/L (3.5-5.1)
--- NOTE | 2024-03-17 07:38 | Critical Care Progress Note ---
Date of Service March 17, 2024 Assessment & Plan (1) AAA (abdominal aortic aneurysm) without rupture: (2) NICKI (obstructive sleep apnea): (3) Hypertension: (4) Chronic kidney disease (CKD): (5) AAA (abdominal aortic aneurysm): (6) CAD (coronary artery disease): (7) Pulmonary emphysema: Plan -- Abdominal aortic aneurysm S/p PEVAR by Dr. Reid on 03/16/2024 Monitor H&H Monitor for any signs of bleeding Continue with atorvastatin -- Hypertension On amlodipine as well as losartan at home Continue with the same regimen -- NICKI On CPAP of 12 cm H2O Following up with Dr. Jiang -- COPD On Spiriva at home -- Anxiety/PTSD --Prophylaxis VTE: None GI: Pantoprazole Lines: Left radial, peripheral, Swan Diet: Cardiac Plan: In/out: +1 L, urine output 2335 DC A-line Potassium being replaced Disposition as per vascular surgery Please note the above document was generated using voice recognition software. It may contain grammatical, syntax or spelling errors.Any formal questions or concerns about the content, text or information contained within the body of this dictation should be directly addressed to the provider for clarification. Admission and Anticipated Discharge Date Admission Date: March 16, 2024 Subjective Patient seen and examined at bedside. No acute distress, no adverse events overnight He was saturating well on room air. Had a good night sleep. Did use his CPAP overnight. No groin pain, no abdominal pain Fair appetite, no nausea or vomiting Denies any headache or blurry vision Review of Systems 2 Review of Systems: All systems reviewed & are unremarkable except as noted in Subjective Physical Exam 2 Physical Exam: Constitutional: No acute distress HEENT: EOMI, PERRLA Respiratory system: Decreased air entry bilaterally, no wheeze, no rhonchi, mild crackles bilateral lower lobes CVS: S1-S2 positive, positive 3 out of 6 systolic murmur appreciated best at the apex Abdomen: Soft, nontender, nondistended, positive bowel sounds x4, obese Extremities: +2 pulses bilaterally radialis/ dorsalis pedis, no cyanosis, no edema Neuro: Awake alert oriented x3 Psych: Normal mood and affect G/U: No Swan Right groin wound VAC in place, left groin bandage in place with no hematoma Skin: no rashes, warm and dry Lymphatic: no cervical or axillary lymphadenopathy Results & Data Results & Data Vital Signs (Past 12 Hours) Vital Signs Temp Pulse Resp BP Pulse Ox O2 Flow Rate 03/17/24 07:15 66 21 95 03/17/24 07:03 74 25 H 92 03/17/24 06:54 64 18 95 03/17/24 06:42 62 17 96 03/17/24 06:00 68 16 92 03/17/24 06:00 159/79 H 03/17/24 05:36 36.7 C 03/17/24 05:21 81 18 92 03/17/24 04:51 63 18 96 03/17/24 04:30 69 15 95 03/17/24 04:00 148/80 H 03/17/24 03:00 62 17 93 03/17/24 03:00 142/74 H 03/17/24 02:52 36.6 C 03/17/24 02:06 55 L 18 93 03/17/24 02:00 119/55 L 03/17/24 01:00 121/48 L 03/17/24 01:00 56 L 18 93 03/17/24 00:09 65 16 95 03/17/24 00:00 62 03/16/24 23:26 37 C 03/16/24 23:09 60 18 94 03/16/24 22:08 67 21 91 6 03/16/24 22:00 130/62 03/16/24 22:00 67 23 93 03/16/24 21:00 130/69 03/16/24 21:00 77 24 91 03/16/24 20:19 36.8 C 03/16/24 20:03 80 12 92 03/16/24 20:00 133/72 Laboratory Results 03/17/24 04:15 03/17/24 04:15 Coding Level of Care Code 88799 SUB INP/OBS CARE 2MIN Diagnoses AAA (abdominal aortic aneurysm) without rupture I71.40 NICKI (obstructive sleep apnea) G47.33 Hypertension I10 Chronic kidney disease (CKD) N18.9 AAA (abdominal aortic aneurysm) I71.40 CAD (coronary artery disease) I25.10 Pulmonary emphysema J43.9
[2024-03-17 07:42] LABS: Estimated Average Glucose 160 mg/dl; Hemoglobin A1C 7.2 % (4.5-5.6)
--- NOTE | 2024-03-17 08:42 | Surgery Progress Note ---
Date of Service March 17, 2024 Assessment & Plan (1) AAA (abdominal aortic aneurysm) without rupture: Plan: Pt doing well post op day 1. Discussed with Dr Reid. OK for d/c home today. Admission and Anticipated Discharge Date Admission Date: March 16, 2024 Subjective 73 yo m POD #1 after PEVAR with R groin cutdown/fem art repair, seen in f/u today. Pt admits pain in R groin incision. Denies chest pain, SOB, abd pain, N/V, other complaints. Swan removed, pt voiding. Review of Systems Review of Systems: All systems reviewed & are unremarkable except as noted in HPI & below Physical Exam Constitutional: WD/WN, vitals as above Respiratory: normal respiratory effort, lungs clear to auscultation Auscultation: + diminished lung sounds Cardiovascular: Rate/Rhythm: regular rate and regular rhythm Vessels: posterior tibial pulses present, dorsalis pedis pulses present and radial pulses present; + abnormal peripheral pulses Extremities: normal capillary refill Gastrointestinal (Abdomen): Inspection/Auscultation: abdomen normal to inspection and normal bowel sounds Percussion/Palpation: abdomen soft; abdomen nontender Musculoskeletal: no cyanosis or clubbing, extremities motor strength 5/5 Skin: no rashes, warm and dry + incision (R groin prevena in place. L groin puncture mild edema/tender/ecchymosis) Neurologic: moves all extremities and awake; no focal motor deficits and not confused Psychiatric: A+Ox3, euthymic affect Results & Data Vital Signs (Past 12 Hours) Vital Signs Temp Pulse Resp BP Pulse Ox O2 Flow Rate 03/17/24 07:15 66 21 95 03/17/24 07:03 74 25 H 92 03/17/24 06:54 64 18 95 03/17/24 06:42 62 17 96 03/17/24 06:00 68 16 92 03/17/24 06:00 159/79 H 03/17/24 05:36 36.7 C 03/17/24 05:21 81 18 92 03/17/24 04:51 63 18 96 03/17/24 04:30 69 15 95 03/17/24 04:00 148/80 H 03/17/24 03:00 62 17 93 03/17/24 03:00 142/74 H 03/17/24 02:52 36.6 C 03/17/24 02:06 55 L 18 93 03/17/24 02:00 119/55 L 03/17/24 01:00 121/48 L 03/17/24 01:00 56 L 18 93 03/17/24 00:09 65 16 95 03/17/24 00:00 62 03/16/24 23:26 37 C 03/16/24 23:09 60 18 94 03/16/24 22:08 67 21 91 6 03/16/24 22:00 130/62 03/16/24 22:00 67 23 93 03/16/24 21:00 130/69 03/16/24 21:00 77 24 91
--- NOTE | 2024-03-17 08:43 | Discharge Summary ---
Date of Service March 17, 2024 Admission HPI Per Admitting Provider Mr. Kwon is an elderly male who presents to vascular surgery clinic in consultation for abdominal aortic aneurysm. Patient is known about this for a number of years, and has been undergoing regular surveillance ultrasounds of this. He had a recent surveillance ultrasound which demonstrated his aneurysm to have grown to 5.8 cm in its largest diameter. The last measurement of record is an aortoiliac ultrasound performed in 2021, at which time it measured 4.4 cm. Patient denies any complaints or concerns at this time. He states that he will occasionally get some bilateral knee pain, and that he occasionally gets some shortness of breath with exertion, but otherwise feels that he is in his usual state of health. He does have known emphysema, possibly COPD. He also has a history of obstructive sleep apnea and coronary disease. He denies headache, fever, chest pain, shortness of breath, abdominal pain, nausea, vomiting, rest pain, claudication, nonhealing wounds or ulcers, edema, other complaints. Admission Exam Per Admitting Provider Constitutional: In general patient is obese but healthy-appearing well-nourished well-developed elderly male no distress. He is alert and oriented without any focal deficits. His trachea is midline. His carotids do not demonstrate a bruit. His heart is regular with systolic ejection murmur. His lungs are decreased throughout with coarse sounding breath sounds and moderate wheezing. His abdomen is protuberant due to body habitus and is somewhat firm but nontender. He has normoactive bowel sounds throughout. I am unable to appreciate a pulsatile mass due to body habitus. Brachial and radial pulses are +4. Femoral pulses are +3. Lower extremities a pulses are +3. He has brisk capillary refill and no sign of distal ischemia. He has trace edema of the lower legs. Principal Diagnosis 1. s/p PEVAR with R groin cutdown/fem art repair 2. AAA Discharge Exam Constitutional WD/WN, vitals as above Respiratory normal respiratory effort, lungs clear to auscultation Auscultation: + diminished lung sounds Cardiovascular Rate/Rhythm: regular rate and regular rhythm Vessels: posterior tibial pulses present, dorsalis pedis pulses present and radial pulses present; + abnormal peripheral pulses Extremities: normal capillary refill Gastrointestinal (Abdomen) Inspection/Auscultation: abdomen normal to inspection and normal bowel sounds Percussion/Palpation: abdomen soft; abdomen nontender Musculoskeletal no cyanosis or clubbing, extremities motor strength 5/5 Skin no rashes, warm and dry + incision (R groin prevena in place. L groin puncture mild edema/tender/ecchymosis) Neurologic moves all extremities and awake; no focal motor deficits and not confused Psychiatric A+Ox3, euthymic affect Discharge Data Allergies Allergy/AdvReac Type Severity Reaction Status Date / Time bee venom protein (honey bee) Allergy Severe Anaphylaxis Verified 03/16/24 05:55 adhesive tape Allergy Mild Rash Verified 03/16/24 05:55 house dust mite Allergy Mild sneezing, Verified 03/16/24 05:55 watery eyes budesonide [From Symbicort] Allergy Unknown Unknown Verified 03/16/24 05:55 formoterol [From Symbicort] Allergy Unknown Unknown Verified 03/16/24 05:55 simvastatin Allergy Unknown Unknown Verified 03/16/24 05:55 vardenafil [From Levitra] Allergy Unknown Unknown Verified 03/16/24 05:55 Consultations 03/16/24 12:59 Consult Design Engineer Routine Procedures Performed Operation Date: 03/16/24 07:30 Actual Procedures p Percutaneous Endovascular Aneurysm Repair, Right Iliac Extension, Mechanical Closure of Left Femoral Artery, (Bilateral) - Brian Reid MD Ordered Studies 03/16/24 07:06 EV AAA repair aorta only Routine US EV guide vascular access Routine Hospital Course (1) AAA (abdominal aortic aneurysm) without rupture: Pt doing well post op day 1. Discussed with Dr Reid. OK for d/c home today. Total Time Total Time Spent Total Time Spent (In Minutes): 0 Discharge Plan Discharge Items Patient Disposition: Home - Self-Care Reason For Visit: Abdominal Aortic Aneurysm, Without Rupture Discharge Diagnosis: 1. s/p PEVAR with R groin cutdown 2. AAA Activity: Per Instructions section Lifting: No more than 10 pounds Non-emergency contact: Primary Care Provider and Surgeon Call non-emergency contact if: your symptoms worsen, your pain is not controlled, your pain is concerning for you, you have a fever, your wound has increased redness, your wound has increased drainage and your wound pain has increased Follow-up/Referrals: Brian Reid MD [Physician] - (Follow up with Dr Reid or Haley Minarchick PA-C, in 2 weeks for staple removal) Lucio Ayala MD [Primary Care Provider] - (Follow up with your PCP within 2 weeks) Diet: Carb Consistent or DM2 and Heart Healthy Addtl Attending Provider Instructions: SPECIAL CARE INSTRUCTIONS: Medications: * Continue to take your medications as directed. Incision/Puncture Site Care: * You will have an incision or puncture in each of your groins. Liquid glue will be used to seal your incisions/puncture site. This will lift off as the incisions/puncture sites heal. * If Liquid glue is not used, there will be small dressings covering your incisions. After you get home, you may remove the dressings and shower - allowing the warm soapy water to run over it. * Be sure to dry the sites well and keep them dry. * DO NOT SOAK IN A TUB/POOL/etc. UNTIL ALL SURGICAL SITES ARE HEALED. DO NOT REMOVE THE GLUE UNTIL THE INCISIONS HEAL. Restrictions: * Limit yourself to leasing coordinator activity for the first week. * You may walk and go up and down steps. * Avoid excessive bending or movement at the level of the incisions or punctures. Risks and Possible Complications: * Infection/Drainage/Bleeding - Drainage or bleeding from the incisions/puncture site should be minimal. If you have excessive bleeding or drainage, call our office ([phone]) right away. * Pain/Numbness - You may experience some mild pain or soreness at your inc ision sites. You may also have some numbness around the incisions or into the insides of your thighs. Bruising is normal and should resolve within 2 weeks. * Changes in Appetite or Bowel Habits - Mostly related to anesthesia and pain medication, some patients have reported decreased appetite and/or problems with constipation. These symptoms usually improve over a few weeks. Remembering to take an [id number] stool softener, as directed, will help you to avoid constipation. Call our office and seek emergent treatment if you develop: * Fever or chills * Have a temperature greater than 101 degrees F * Any redness or purulent drainage from your incisions or punctures * Severe abdominal, chest or back pain SKIN IRRITATION: * You may experience some redness and/or swelling in the area where radiation was administered. If any skin irritation occurs, please contact your family physician. You will be receiving a call from the Vascular Surgery Nurse after you are discharged. FOLLOW UP VISIT: It is important for you to keep your follow up appointments with your medical provider. Keep any scheduled doctor appointments. Pending Studies at Discharge: No Stand-Alone Forms: My [facility], Smoking Cessation Medications and DC Order Prescriptions: New oxycodone 5 mg tablet 5 mg PO Q6H PRN (Reason: pain) Qty: 20 0RF Continued (DME) CPAP Machine Misc See Dose Instructions .ROUTE .MEDSUPPLY Qty: 1 0RF Dose Instruction: As directed Rx Instructions: 11 cm H2O L. acidophilus/Bifid. animalis 31 billion cell capsule 2 - 3 cap PO BID nitroglycerin 0.4 mg tablet, sublingual 0.4 mg SL Q5M PRN (Reason: Chest Pain) (D[place] [facility] [place] Dose Instructions .ROUTE .MEDSUPPLY Qty: 1 0RF Dose Instruction: As directed Rx Instructions: As directed chlorpheniramine maleate [Allergy Relief(chlorpheniramn)] 4 mg tablet 4 mg PO Q6H PRN (Reason: Allergy Symptoms) Rx Instructions: do not exceed 2 doses per 24 hrs Spiriva Respimat 2.5 mcg/actuation mist 2 inh inhalation QAM triamcinolone acetonide 0.1 % cream 1 applic topical DAILY ibuprofen [Motrin IB] 200 mg tablet 200 mg PO BID citalopram 10 mg Tablet 10 mg PO QAM pantoprazole 40 mg Tablet,Delayed Release (Dr/Ec) 40 mg PO BID aspirin [Kari Low Dose Aspirin] 81 mg Tablet,Delayed Release (Dr/Ec) 81 mg PO QAM loperamide 2 mg Capsule 2 mg PO Q3H PRN (Reason: Diarrhea) Patient Comments: haven't taken in weeks atorvastatin 40 mg tablet 40 mg PO HS multivitamin Tablet 1 tab PO QAM losartan 50 mg Tablet 100 mg PO QAM acetaminophen 325 mg Tablet 975 mg PO TID amlodipine 5 mg Tablet 5 mg PO QAM fluticasone propionate [Flonase Allergy Relief] 50 mcg/actuation [employer] [place],Suspension 1 spray INTRANASAL DAILY PRN (Reason: Allergy Symptoms) ipratropium-albuterol 0.5 mg-3 mg(2.5 mg base)/3 mL solution for nebulization 3 ml INH TID PRN (Reason: Shortness Of Breath) Cbd Oil 2 - 3 drp PO HS metformin 500 mg Tablet 500 mg PO BID Mucinex 1 tab PO DAILY PRN (Reason: Congestion) Discharge Orders: Discharge Order (Routine); Ordered 03/17/24 Ordered By: Haley Alaniz Admission Data Admit Date/Time: 03/16/24 07:43 Attending Provider: Brian Reid Admit Provider: Brian Reid Primary Care Provider: Lucio Ayala Other Providers: Herberth Batres; Tonio Mckoy; Popeye Holly; Tao Whelan; Sotero Jiang Muqueet; Max Butler; Abby Barr; Mattie Reeves; Tylor Melo; Shay Casarez; Bonny Howell
[2024-03-17] MEDS: POTASSIUM CHLORIDE CRTAB 20 MEQ TABCR PO STA (08:58)
[2024-03-17] MEDS: amLODIPine BESYLATE 5 MG TAB PO SCH (09:01)
[2024-03-17] MEDS: LOSARTAN POTASSIUM 50 MG TAB PO SCH (09:01)
[2024-03-17] MEDS: CITALOPRAM 20 MG TAB PO SCH (09:01)
[2024-03-17] MEDS: ASPIRIN 81 MG ECTAB PO SCH (09:03)
[2024-03-17] MEDS: UMECLIDINIUM BROMIDE 62.5MCG/BLISTER 7 PUFFS/INHALER INH SCH (09:03)
[2024-03-17] MEDS: TRIAMCINOLONE ACET 0.1% CR 15 GM TUBE TOP SCH (09:04)
[2024-03-17] MEDS: MULTIVITAMIN TAB PO SCH (09:04)
[2024-03-17] MEDS: LANTUS PER UNIT CHARGE SC SCH (09:08)
== END 2024-03-17 15:02 | disposition home or self-care (01) | DRG 269 ==
LOC: ASU 05:30 → 1E 07:43

== ENCOUNTER 2024-05-28 22:04 | Inpatient (IN) ==
--- NOTE | 2024-05-28 22:25 | Emergency Department Note ---
Impression & Plan Chest pain, Non-ST elevation MS (NSTEMI), Acute hypoxemic respiratory failure ED Provider Note HISTORY OF PRESENT ILLNESS: Patient is a 74-year-old male presenting with left-sided chest pain. Patient reports he woke up from a nap and had left-sided chest pain. Reports has been ongoing for the last 2 hours. He is taken a total of 3 nitroglycerin with little relief in his chest pain. He states that he had pain like this last week but it went away in 10 minutes and he did not need to take a nitro. He has a history of cardiac stents and is on a baby aspirin. He denies any nausea or vomiting with the chest pain, but does report some shortness of breath. He does not wear any supplemental oxygen at baseline. He denies any DVT or PE history. He is currently rating the pain a 9 out of 10. He denies any abdominal pain, nausea or vomiting. ROS: as above PHYSICAL EXAM: Constitutional: Patient appears in no acute distress. Patient appears uncomfortable and is sitting on the side of the bed. HENT: Head: Normocephalic and atraumatic. Eyes: EOMI, PERRL Mouth/Throat: Mucous membranes moist. Neck: Trachea midline. Neck supple. Cardiovascular: RRR, No murmurs, rubs or gallops. Intact distal pulses. Pulmonary/Chest: Breath sounds clear and equal bilaterally. Patient is hypoxic on room air and placed on 2 L nasal cannula. Abdominal: Abdomen soft, no tenderness, rebound or guarding. Musculoskeletal: No edema, tenderness or deformity noted. Skin: Warm and dry. No rash, erythema, pallor or cyanosis Psychiatric: Appropriate mood and affect for situation. Neurological: Alert and keenly responsive. CN II-XII grossly intact, moving all extremities equally and fully. MDM: - Vitals signs showed hypertension, tachypnea and tachycardia. - History obtained via patient. History as above. - Chronic conditions affecting care: CAD (s/p PCI); AAA; HTN - Differential diagnoses include, but are not limited to: Acute coronary syndrome; pulmonary embolism; dissection; tension pneumothorax; esophageal rupture; pneumonia - Order placed for continuous cardiac monitoring. At this time, monitor showed rate of 83 bpm with normal sinus rhythm, per my interpretation. - External medical records reviewed. Discharge summary dated 03/17/2024 was reviewed. Patient was admitted at that time for AAA without rupture. He had percutaneous endovascular aneurysm repair. - EKG interpreted by myself showed normal sinus rhythm. Rate 77 bpm. QT 328. No acute ischemic changes. - Laboratory workup interpreted by myself showed normal WBC; normal PT/INR; stable electrolytes; elevated troponin (23) - Patient initially given 50 mcg IV fentanyl. He was still complaining of significant pain on reassessment. Given 1 mg IV Dilaudid. - CXR negative for pneumonia, per my interpretation. - CTA chest negative for dissection. Noted to have a nonspecific 4 mm right upper lobe nodule. - Repeat troponin ordered - Given patient's persistent chest pain and moderate risk HEART score, will admit for further cardiac workup. - Patient given 324 mg PO aspirin in ER. - Discussion was had with trimming caser about patient's case and need for admission - Hospitalist, Dr. Garrison, consulted for admission. Reports patient has a history of Spencer's esophagus and requested that GI cocktail be ordered. - [facility] ASSESSMENT AND PLAN: Diagnosis: Chest pain; NSTEMI; acute hypoxic respiratory failure Plan: Admit Past Med/Surg History Problem List (Updated 05/29/24 @ 00:24 by Tiesha Sanchez MD) Acute hypoxemic respiratory failure (Acute) Non-ST elevation MS (NSTEMI) (Acute) Chest pain (Acute) Dysfunction of both eustachian tubes Nasopharyngeal mass Sinusitis S/P AAA (abdominal aortic aneurysm) repair Hypertension Chronic kidney disease (CKD) Per records AAA (abdominal aortic aneurysm) Abdomen/Pelvis CT 01/2024: AAA measures up to 5.7 x 4.5 cm, just proximal to the bifurcation CAD (coronary artery disease) Stents x2 (2014) Pulmonary emphysema NICKI (obstructive sleep apnea) 2L O2 + CPAP HS Hypomagnesemia Elevated PSA Medical History Lumbar stenosis History of MS (myocardial infarction) 2014 Aortic root dilation CAD (coronary artery disease) Stents x2 (2014) Venous insufficiency Scrotal mass No surgical intervention recommended, under surveillance Pulmonary emphysema PTSD (post-traumatic stress disorder) NICKI (obstructive sleep apnea) 2L O2 + CPAP HS Hx of agent [place] exposure Hypertension Hyperlipidemia Hx of colonic polyps GERD (gastroesophageal reflux disease) Diabetes mellitus, type 2 NIDDM Chronic kidney disease (CKD) Per records BPH with obstruction/lower urinary tract symptoms Barretts esophagus AAA (abdominal aortic aneurysm) Abdomen/Pelvis CT 01/2024: AAA measures up to 5.7 x 4.5 cm, just proximal to the bifurcation Gastric cancer 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, multiple endoscopic resections, s/p [facility] Melanoma Facial, s/p excision Hx of renal calculi Anxiety and depression Surgical History History of anesthesia reaction "Tends to get a lot of mucous buildup in throat during procedures" H/O lumbosacral spine surgery Hx of shoulder surgery right Hx of cholecystectomy History of uvulopalatopharyngoplasty 30 years ago Hx of arthroscopy of shoulder right Hx of lithotripsy Hx of melanoma excision Face Hx of bilateral cataract extraction Hx of colonoscopy History of tooth extraction History of cardiac cath 2015- stents x2 History of lumbar spinal fusion L4-L5 History of esophagogastroduodenoscopy (EGD) Family History Father Cirrhosis Mother Alzheimer disease Other No family history of adverse response to anesthesia Social History Smoking Status: Former smoker Tobacco Type: Cigarettes Age Started Using Tobacco: 13; packs per day: 1; Cigarettes Per Day: 20; Second Hand Exposure: No; Do You Dip or Chew Tobacco: No; Hx Alcohol Use: Yes (quit 40 years ago) Hx Substance Use: Yes (quit 40 years ago) Preferred Language: [place]itanian Communication Ability: Effective [employer] Technician Required: No Beliefs That Will Affect Care: None marital status: Current Living Situation: Spouse Feels Safe at Home: Yes Assistive Devices: Cane and Oxygen - at Night Allergies Allergies Allergy/AdvReac Type Severity Reaction Status Date / Time bee venom protein (honey bee) Allergy Severe Anaphylaxis Verified 05/25/24 13:59 adhesive tape Allergy Mild Rash Verified 05/25/24 13:59 house dust mite Allergy Mild sneezing, Verified 05/25/24 13:59 watery eyes budesonide [From Symbicort] Allergy Unknown Unknown Verified 05/25/24 13:59 formoterol [From Symbicort] Allergy Unknown Unknown Verified 05/25/24 13:59 simvastatin Allergy Unknown Unknown Verified 05/25/24 13:59 vardenafil [From Levitra] Allergy Unknown Unknown Verified 05/25/24 13:59 Home Meds Home Medications Medication Instructions Recorded Confirmed aspirin 81 mg tablet,delayed 81 mg PO QAM 08/06/18 05/25/24 release (Kari Low Dose Aspirin) citalopram 10 mg tablet 10 mg PO QAM 08/06/18 05/25/24 loperamide 2 mg capsule 2 mg PO Q3H PRN Diarrhea 08/06/18 05/25/24 pantoprazole 40 mg tablet,delayed 40 mg PO BID 08/06/18 05/25/24 release Lactobacillus 2 - 3 cap PO BID 06/07/19 05/25/24 acidophilus-Bifidobac.animalis 31 billion cell capsule nitroglycerin 0.4 mg sublingual 0.4 mg sublingual Q5M PRN Chest 06/07/19 05/25/24 tablet Pain chlorpheniramine maleate 4 mg 4 mg PO Q6H PRN Allergy Symptoms 04/17/20 05/25/24 tablet (Allergy Relief (chlorpheniramine)) tiotropium bromide 2.5 2 inh inhalation QAM 03/29/21 05/25/24 mcg/actuation mist for inhalation (Spiriva Respimat) acetaminophen 325 mg tablet 975 mg PO TID 09/27/21 05/25/24 amlodipine 5 mg tablet 5 mg PO QAM 09/27/21 05/25/24 fluticasone propionate 50 1 spray intranasal DAILY PRN 09/27/21 05/25/24 mcg/actuation nasal Allergy Symptoms spray,suspension (Flonase Allergy Relief) ipratropium 0.5 mg-albuterol 3 mg 3 ml inhalation TID PRN Shortness 09/27/21 05/25/24 (2.5 mg base)/3 mL nebulization Of Breath soln losartan 50 mg tablet 100 mg PO QAM 09/27/21 05/25/24 multivitamin 1 tab PO QAM 09/27/21 05/25/24 triamcinolone acetonide 0.1 % 1 applic topical DAILY 04/14/23 05/25/24 topical cream atorvastatin 40 mg tablet 40 mg PO HS 10/21/23 05/25/24 ibuprofen 200 mg tablet (Motrin IB) 200 mg PO BID 10/21/23 05/25/24 Cbd Oil 2 - 3 drp PO HS 02/10/24 05/25/24 Mucinex 1 tab PO DAILY PRN Congestion 02/10/24 05/25/24 metformin 500 mg tablet 500 mg PO BID 02/10/24 05/25/24 azelastine 137 mcg (0.1 %) nasal 1 spray intranasal BID 05/25/24 05/25/24 spray Previous Rx's Medication Instructions Recorded nebulizers #1 ea 07/01/19 CPAP Machine #1 ea 04/23/21 oxycodone 5 mg tablet 5 mg PO Q6H PRN pain #20 tabs 03/17/24 doxycycline hyclate 100 mg tablet 100 mg PO DAILY #20 tabs 05/25/24 Results & Data (ED) Vital Signs Vital Signs - 24 hr 05/28/24 22:05 05/28/24 22:13 05/28/24 22:17 Temperature Source Temporal Artery Scan Pulse Rate 144 H Pulse Rate [Apical] 80 Pulse Rate from SpO2 Sensor Respiratory Rate 24 32 H Respiratory Effort / Characteristics Non-Labored Labored Respiratory Depth Normal Respiratory Pattern Regular Blood Pressure Blood Pressure [Right Arm] 151/92 H Blood Pressure Mean Blood Pressure Mean [Right Arm] 111 Pulse Oximetry 99 89 L 89 L Oxygen Delivery Method Room Air Room Air Nasal Cannula Oxygen Flow Rate 0 Sepsis Recent Fever Within 48 Hours No Sepsis New/Unexplained Change in Mental Status N/A Sepsis Action Taken by Nursing No Action Required Oxygen Flow Rate - Titration 2 Pulse Oximetry Post Tiitration 92 05/28/24 23:18 05/29/24 00:00 Temperature Source Pulse Rate 77 75 Pulse Rate [Apical] Pulse Rate from SpO2 Sensor 76 76 Respiratory Rate 24 27 H Respiratory Effort / Characteristics Respiratory Depth Respiratory Pattern Blood Pressure 145/82 H 135/92 Blood Pressure [Right Arm] Blood Pressure Mean 103 101 Blood Pressure Mean [Right Arm] Pulse Oximetry 92 91 Oxygen Delivery Method Oxygen Flow Rate Sepsis Recent Fever Within 48 Hours Sepsis New/Unexplained Change in Mental Status Sepsis Action Taken by Nursing Oxygen Flow Rate - Titration Pulse Oximetry Post Tiitration Laboratory Data 05/28/24 22:15 05/28/24 22:15 Lab Results 05/28/24 05/28/24 Range/Units 22:15 22:37 WBC 8.83 (4.8-10.8) K/ul RBC 5.05 (4.70-6.10) M/uL Hgb 15.6 (14.0-18.0) g/dl POC Hgb 13.6 L (14.0-18.0) g/dl Hct 47.4 (42.0-52.0) % POC Hct 40 L (42-52) % MCV 93.9 (80.0-100.0) fL MCH 30.9 (25.0-34.0) pg MCHC 32.9 (32.0-36.0) g/dL RDW Std Deviation 47.1 H (36.4-46.3) fL RDW Coeff of Ton 14.2 (11.5-14.5) % Plt Count 264 (130-400) K/uL MPV 9.2 L (9.4-12.4) fL Immature Gran % (Auto) 0.3 % Neut % (Auto) 69.5 % Lymph % (Auto) 16.9 % [place] % (Auto) 10.1 % Eos % (Auto) 2.7 % Baso % (Auto) 0.5 % Neut # (Auto) 6.14 (1.40-6.50) K/uL Lymph # (Auto) 1.49 (1.20-3.40) K/uL [place] # (Auto) 0.89 H (0.11-0.59) K/uL Eos # (Auto) 0.24 (0.00-0.50) K/uL Baso # (Auto) 0.04 (0.00-0.20) K/uL Immature Gran # (Auto) 0.03 (0.01-0.20) K/uL PT 11.0 (9.0-12.0) Seconds INR 1.0 (0.9-1.1) POC Sodium 140 (135-144) mmol/L Sodium 139 (136-145) mmol/L POC Potassium 4.4 (3.3-5.0) mmol/L Potassium 4.1 (3.5-5.1) mmol/L POC Chloride 105 (101-112) mmol/L Chloride 104 (98-107) mmol/L Carbon Dioxide 28 (21-32) mmol/L POC Total CO2 28 (24-31) mmol/L Anion Gap 7 (3-11) POC Anion Gap 12.0 L (16-25) mmol/L POC BUN 23 H (7-18) mg/dl BUN 20 (6-23) mg/dl Creatinine 1.07 (0.6-1.4) mg/dl POC Creatinine 1.2 (0.6-1.3) mg/dl Est Cr Clr Drug Dosing Not Reportable eGFR 71.92 BUN/Creatinine Ratio 18.7 (10-20) Glucose 126 H (70-99(Fasting)) mg/dl POC Glucose (other) 122 H (70-99) mg/dl Calcium 10.4 H (8.6-10.3) mg/dl POC Ioniz Calcium Diane 1.19 (1.12-1.32) mmol/l Total Bilirubin 0.6 (0.2-1.0) mg/dl AST 22 (13-39) U/L ALT 25 (7-52) U/L Alkaline Phosphatase 83 (34-104) U/L Troponin I High Sens 23.0 H (0-20) pg/ml Total Protein 7.9 (6.0-8.3) gm/dl Albumin 4.8 (3.4-5.0) gm/dl Globulin 3.1 (2.5-4.0) gm/dl Albumin/Globulin Ratio 1.5 (0.9-2) Lipase 29 (11-82) U/L Administered Medications Discontinued Medications Fentanyl Citrate (Fentanyl Citrate Pf 100 Mcg/2 Ml Vial) 50 mcg IV NOW STA Stop: 05/28/24 22:22 Last Admin: 05/28/24 22:31 Dose: 50 mcg Documented By: EDWAR Hydromorphone HCl (Hydromorphone Inj 1 Mg/Ml Syringe) 1 mg IV NOW STA Stop: 05/28/24 23:43 Last Admin: 05/29/24 00:01 Dose: 1 mg Documented By: DANYELLE Ioversol (Optiray 320 125ml) 118 ml IV ONCE ONE Stop: 05/28/24 22:55 Last Admin: 05/28/24 22:54 Dose: 118 ml Documented By: PLW Imaging Data Radiologist's Impression: Chest CTA 05/28/24 22:21 Exam(s): CTA CHEST W/WO Contrast IV Amt: 118 ml opti 320 EXAM: CT Angiography Chest Without and With Intravenous Contrast CLINICAL HISTORY: Reason for exam: chest pain; bilateral arm numbness; hypoxia. TECHNIQUE: Axial computed tomographic angiography images of the chest without and with intravenous contrast. CTDI is 25.14 mGy and DLP is 1834.52 mGy-cm. Automated exposure control was utilized for the study. A dose lowering technique was utilized adhering to the principles of ALARA. MIP reconstructed images were created and reviewed. CONTRAST: Patient received 118 ml opti 320 of IV contrast COMPARISON: CT chest on 10/12/2018 and 09/07/2020 FINDINGS: Pulmonary arteries: Unremarkable. No definite pulmonary embolus identified. Aorta: Atherosclerotic changes of the aorta. No aortic aneurysm or dissection. Lungs: Nonspecific 4 mm nodule in the right upper lobe. Further evaluation could be performed in 12 months. Emphysematous changes. Dependent and bibasilar atelectasis. No focal consolidation. Pleural space: Nonspecific prominent pleural fat along the left anterolateral mid chest. No significant effusion. No pneumothorax. Heart: Unremarkable. No cardiomegaly. No significant pericardial effusion. No evidence of RV dysfunction. Bones/joints: Degenerative changes of the spine. No acute fracture. No dislocation. Soft tissues: See above. Lymph nodes: Unremarkable. No enlarged lymph nodes. IMPRESSION: 1. No definite pulmonary embolus identified. 2. Atherosclerotic changes of the aorta. No aortic aneurysm or dissection. 3. Nonspecific 4 mm nodule in the right upper lobe. Further evaluation could be performed in 12 months. 4. Nonspecific prominent pleural fat along the left anterolateral mid chest. 5. Emphysematous changes. Dependent and bibasilar atelectasis. No focal consolidation. Electronically signed by: Phyllis Gutiérrez M.D. 05/28/24 23:28 PM Discharge Plan Visit Data Chief Complaint: Cardiac Assessment Stated Complaint: CARDIAC PAIN ED Provider: Tiesha Sanchez Discharge Problem: Chest pain, Non-ST elevation MS (NSTEMI), Acute hypoxemic respiratory failure Forms Stand Alone Forms: Prismatic Prescriptions Prescriptions: No Action (DME) CPAP Machine Misc See Dose Instructions .ROUTE .MEDSUPPLY Qty: 1 0RF Dose Instruction: As directed Rx Instructions: 11 cm H2O L. acidophilus/Bifid. animalis 31 billion cell capsule 2 - 3 cap PO BID nitroglycerin 0.4 mg tablet, sublingual 0.4 mg SL Q5M PRN (Reason: Chest Pain) (DME) nebulizers misc See Dose Instructions .ROUTE .MEDSUPPLY Qty: 1 0RF Dose Instruction: As directed Rx Instructions: As directed chlorpheniramine maleate [Allergy Relief(chlorpheniramn)] 4 mg tablet 4 mg PO Q6H PRN (Reason: Allergy Symptoms) Rx Instructions: do not exceed 2 doses per 24 hrs Spiriva Respimat 2.5 mcg/actuation mist 2 inh inhalation QAM triamcinolone acetonide 0.1 % cream 1 applic topical DAILY ibuprofen [Motrin IB] 200 mg tablet 200 mg PO BID azelastine 137 mcg (0.1 %) spray,non-aerosol 1 spray intranasal BID Rx Instructions: administer into each nostril doxycycline hyclate 100 mg tablet 100 mg PO DAILY Qty: 20 0RF citalopram 10 mg Tablet 10 mg PO QAM pantoprazole 40 mg Tablet,Delayed Release (Dr/Ec) 40 mg PO BID aspirin [Kari Low Dose Aspirin] 81 mg Tablet,Delayed Release (Dr/Ec) 81 mg PO QAM loperamide 2 mg Capsule 2 mg PO Q3H PRN (Reason: Diarrhea) Patient Comments: haven't taken in weeks atorvastatin 40 mg tablet 40 mg PO HS multivitamin Tablet 1 tab PO QAM losartan 50 mg Tablet 100 mg PO QAM acetaminophen 325 mg Tablet 975 mg PO TID amlodipine 5 mg Tablet 5 mg PO QAM fluticasone propionate [Flonase Allergy Relief] 50 mcg/actuation [place],Suspension 1 spray INTRANASAL DAILY PRN (Reason: Allergy Symptoms) ipratropium-albuterol 0.5 mg-3 mg(2.5 mg base)/3 mL solution for nebulization 3 ml INH TID PRN (Reason: Shortness Of Breath) Cbd Oil 2 - 3 drp PO HS metformin 500 mg Tablet 500 mg PO BID Mucinex 1 tab PO DAILY PRN (Reason: Congestion) oxycodone 5 mg tablet 5 mg PO Q6H PRN (Reason: pain) Qty: 20 0RF Referrals Referrals: Lucio Ayala MD [Primary Care Provider] -
[2024-05-28 22:27] LABS: Basophils # (auto) 0.04 K/uL (0.00-0.20); Basophils % (auto) 0.5 %; Eosinophils # (auto) 0.24 K/uL (0.00-0.50); Eosinophils % (auto) 2.7 %; Hematocrit (blood only) 47.4 % (42.0-52.0); Hemoglobin 15.6 g/dl (14.0-18.0); Immature Granulocytes # (auto) 0.03 K/uL (0.01-0.20); Immature Granulocytes % (auto) 0.3 %; Lymphocytes # (auto) 1.49 K/uL (1.20-3.40); Lymphocytes % (auto) 16.9 %; Mean Corpuscular Hemoglobin 30.9 pg (25.0-34.0); Mean Corpuscular Hgb Conc 32.9 g/dL (32.0-36.0); Mean Corpuscular Volume 93.9 fL (80.0-100.0); Mean Platelet Volume 9.2 fL (9.4-12.4); Monocytes # (auto) 0.89 K/uL (0.11-0.59); Monocytes % (auto) 10.1 %; Neutrophils # (auto) 6.14 K/uL (1.40-6.50); Neutrophils % (auto) 69.5 %; Platelet Count 264 K/uL (130-400); RDW Coefficient of Variation 14.2 % (11.5-14.5); RDW Standard Deviation 47.1 fL (36.4-46.3); Red Blood Count 5.05 M/uL (4.70-6.10); White Blood Count 8.83 K/ul (4.8-10.8)
[2024-05-28] MEDS: fentaNYL citrate PF 100 MCG/2 ML VIAL IV STA (22:31)
[2024-05-28 22:48] LABS: Alanine Aminotransferase 25 U/L (7-52); Albumin Globulin Ratio 1.5 (0.9-2); Albumin Level 4.8 gm/dl (3.4-5.0); Alkaline Phosphatase 83 U/L (34-104); Anion Gap 7 (3-11); Aspartate Aminotransferase 22 U/L (13-39); BUN Creatinine Ratio 18.7 (10-20); Bilirubin,Total 0.6 mg/dl (0.2-1.0); Blood Urea Nitrogen 20 mg/dl (6-23); Calcium 10.4 mg/dl (8.6-10.3); Carbon Dioxide 28 mmol/L (21-32); Chloride 104 mmol/L (98-107); Globulin 3.1 gm/dl (2.5-4.0); Glucose 126 mg/dl (70-99(Fasting)); Lipase 29 U/L (11-82); Potassium 4.1 mmol/L (3.5-5.1); Sodium 139 mmol/L (136-145); Total Protein 7.9 gm/dl (6.0-8.3)
[2024-05-28 22:52] LABS: iSTAT Creatinine 1.2 mg/dl (0.6-1.3); iSTAT Hemoglobin 13.6 g/dl (14.0-18.0); iSTAT Ionized Calcium 1.19 mmol/l (1.12-1.32); iSTAT Potassium 4.4 mmol/L (3.3-5.0)
[2024-05-28] MEDS: OPTIRAY 320 125ml IV ONE (22:54)
--- NOTE | 2024-05-28 23:29 | CT Scan Report ---
Exam(s): CTA CHEST W/WO Contrast IV Amt: 118 ml opti 320 EXAM: CT Angiography Chest Without and With Intravenous Contrast CLINICAL HISTORY: Reason for exam: chest pain; bilateral arm numbness; hypoxia. TECHNIQUE: Axial computed tomographic angiography images of the chest without and with intravenous contrast. CTDI is 25.14 mGy and DLP is 1834.52 mGy-cm. Automated exposure control was utilized for the study. A dose lowering technique was utilized adhering to the principles of ALARA. MIP reconstructed images were created and reviewed. CONTRAST: Patient received 118 ml opti 320 of IV contrast COMPARISON: CT chest on 10/12/2018 and 09/07/2020 FINDINGS: Pulmonary arteries: Unremarkable. No definite pulmonary embolus identified. Aorta: Atherosclerotic changes of the aorta. No aortic aneurysm or dissection. Lungs: Nonspecific 4 mm nodule in the right upper lobe. Further evaluation could be performed in 12 months. Emphysematous changes. Dependent and bibasilar atelectasis. No focal consolidation. Pleural space: Nonspecific prominent pleural fat along the left anterolateral mid chest. No significant effusion. No pneumothorax. Heart: Unremarkable. No cardiomegaly. No significant pericardial effusion. No evidence of RV dysfunction. Bones/joints: Degenerative changes of the spine. No acute fracture. No dislocation. Soft tissues: See above. Lymph nodes: Unremarkable. No enlarged lymph nodes. IMPRESSION: 1. No definite pulmonary embolus identified. 2. Atherosclerotic changes of the aorta. No aortic aneurysm or dissection. 3. Nonspecific 4 mm nodule in the right upper lobe. Further evaluation could be performed in 12 months. 4. Nonspecific prominent pleural fat along the left anterolateral mid chest. 5. Emphysematous changes. Dependent and bibasilar atelectasis. No focal consolidation. Electronically signed by: Phyllis Gutiérrez M.D. 05/28/24 23:28 PM
[2024-05-29] MEDS: HYDROmorphone INJ 1 MG/ML SYRINGE IV STA (00:01)
--- NOTE | 2024-05-29 00:54 | History & Physical Report ---
Date of Service May 29, 2024 Assessment & Plan (1) Chest pain: Plan: 74yo male with history of CAD s/p NV in 2015 with placement of 2 stents presenting with chest pain. Patient with mild elevation of troponin on arrival -23. Repeat has declined to 20.7. No acute ischemic changes present on EKG. Patient presently chest pain free. Reproducible on exam. Suspect non-cardiac chest pain. Possibly musculoskeletal given reproducible nature. Possible pericarditis given positional and pleuritic nature of his pain. -Observation to medical with telemetry -Repeat troponin in ER -Check 2D echo -Continue ASA, Atorvastatin -Dilaudid PRN -Lidoderm patch (2) CAD (coronary artery disease): Plan: Patient with known CAD s/p NV in 2015 with stent placement x 2. He follows with Cardiology. Reports no exertional chest pain, however, he has noted progression of exertional dyspnea over the years. Likely largely secondary to his COPD. He recently had a nuclear stress test performed and reports no significant findings. -Continue ASA -Continue Atorvastatin -Continue Losartan (3) NICKI (obstructive sleep apnea): Plan: Chronic. Stable. Patient reports compliance with his home CPAP, he uses supplemental O2 at night as well -Continue CPAP qHS -Supplemental O2 at night (4) Diabetes mellitus, type 2: Plan: Overall fairly well controlled. Last RztL0F=2.2 on 03/17/24. BSG today 126. Patient is compliant with his Metformin. He reports a recent dose change to 500mg po qAM and 1000mg po qPM -Hold Metformin -ISS -Goal blood sugar 110 - 140 (5) Anxiety: Plan: Patient reports anxiety - is worried about having a panic attack in the hospital. -Continue home SSRI -Will add hydroxyzine 25mg po TID as needed for anxiety Plan Chronic Medical Conditions: COPD - patient reports ongoing cough and SOB, unchanged from baseline -DuoNeb PRN -Continue Doxycycline 100mg po BID - patient has been on this since 05/25 for sinus infection GERD - chronic, stable -Continue Protonix 40mg po daily Hypertension - chronic, mildly elevated blood pressure in ER -Continue Amlodipine 5mg po daily -Continue Losartan 50mg po daily BPH - chronic, stable -Continue Flomax Tobacco use -Cessation counseling -Nicotine patch History of Present Illness Chief Complaint: chest pain Primary Care Provider: MD Nina Bravo is a pleasant 74yo male with history of CAD s/p NV in 2015 with stent placement x 2 presenting to [facility] ER with chest pain. Patient reports having an episode of chest pain 1 week ago His pain at that time lasted approximately 15 minutes then resolved on its own. He thought the pain at that time was likely musculoskeletal because earlier in the day he was doing some work and pulling himself up and down on a tractor. This evening he was sleeping when he woke around 20:00 with left sided chest discomfort. He reports the pain was 10/10 in severity, sharp and stabbing in nature. Pleuritic in nature - reports very sharp and severe pain with deep breathing. He took a SL Nitro x 1 at 20:15 with some mild improvement in the pain then another Nitro at 20:30. Patient had some shortness of breath and numbness of his arms bilaterally. No nausea, diaphoresis or worsening dizziness (has baseline dizziness). Patient did take a 3rd Nitro en route to the hospital. Pain is somewhat positional - better with sitting up. Non-exertional. No heart burn symptoms. In the ER he is afebrile, HD stable Pain improved with administration of Dilaudid ER Course: Fentanyl 50mcg Dilaudid 1mg Allergies Allergy/AdvReac Type Severity Reaction Status Date / Time bee venom protein (honey bee) Allergy Severe Anaphylaxis Verified 05/25/24 13:59 adhesive tape Allergy Mild Rash Verified 05/25/24 13:59 house dust mite Allergy Mild sneezing, Verified 05/25/24 13:59 watery eyes budesonide [From Symbicort] Allergy Unknown Unknown Verified 05/25/24 13:59 formoterol [From Symbicort] Allergy Unknown Unknown Verified 05/25/24 13:59 simvastatin Allergy Unknown Unknown Verified 05/25/24 13:59 vardenafil [From Levitra] Allergy Unknown Unknown Verified 05/25/24 13:59 Home Medications Medication Instructions Recorded Confirmed Type aspirin 81 mg tablet,delayed 81 mg PO QAM 08/06/18 05/25/24 History release (Kari Low Dose Aspirin) citalopram 10 mg tablet 10 mg PO QAM 08/06/18 05/25/24 History loperamide 2 mg capsule 2 mg PO Q3H PRN Diarrhea 08/06/18 05/25/24 History pantoprazole 40 mg tablet,delayed 40 mg PO BID 08/06/18 05/25/24 History release Lactobacillus 2 - 3 cap PO BID 06/07/19 05/25/24 History acidophilus-Bifidobac.animalis 31 billion cell capsule nitroglycerin 0.4 mg sublingual 0.4 mg sublingual Q5M PRN Chest 06/07/19 05/25/24 History tablet Pain nebulizers #1 ea 07/01/19 05/25/24 Rx chlorpheniramine maleate 4 mg 4 mg PO Q6H PRN Allergy Symptoms 04/17/20 05/25/24 History tablet (Allergy Relief (chlorpheniramine)) tiotropium bromide 2.5 2 inh inhalation QAM 03/29/21 05/25/24 History mcg/actuation mist for inhalation (Spiriva Respimat) CPAP Machine #1 ea 04/23/21 05/25/24 Rx acetaminophen 325 mg tablet 975 mg PO TID 09/27/21 05/25/24 History amlodipine 5 mg tablet 5 mg PO QAM 09/27/21 05/25/24 History fluticasone propionate 50 1 spray intranasal DAILY PRN 09/27/21 05/25/24 History mcg/actuation nasal Allergy Symptoms spray,suspension (Flonase Allergy Relief) ipratropium 0.5 mg-albuterol 3 mg 3 ml inhalation TID PRN Shortness 09/27/21 05/25/24 History (2.5 mg base)/3 mL nebulization Of Breath soln losartan 50 mg tablet 100 mg PO QAM 09/27/21 05/25/24 History multivitamin 1 tab PO QAM 09/27/21 05/25/24 History triamcinolone acetonide 0.1 % 1 applic topical DAILY 04/14/23 05/25/24 History topical cream atorvastatin 40 mg tablet 40 mg PO HS 10/21/23 05/25/24 History ibuprofen 200 mg tablet (Motrin IB) 200 mg PO BID 10/21/23 05/25/24 History Cbd Oil 2 - 3 drp PO HS 02/10/24 05/25/24 History Mucinex 1 tab PO DAILY PRN Congestion 02/10/24 05/25/24 History metformin 500 mg tablet 500 mg PO BID 02/10/24 05/25/24 History oxycodone 5 mg tablet 5 mg PO Q6H PRN pain #20 tabs 03/17/24 05/25/24 Rx azelastine 137 mcg (0.1 %) nasal 1 spray intranasal BID 05/25/24 05/25/24 History spray doxycycline hyclate 100 mg tablet 100 mg PO DAILY #20 tabs 05/25/24 05/25/24 Rx Past Med/Surg History Problem List (Updated 05/29/24 @ 01:22 by Mariel Garrison DO) Anxiety Acute hypoxemic respiratory failure (Acute) Non-ST elevation NV (NSTEMI) (Acute) Chest pain (Acute) Dysfunction of both eustachian tubes Nasopharyngeal mass Sinusitis S/P AAA (abdominal aortic aneurysm) repair Hypertension Chronic kidney disease (CKD) Per records AAA (abdominal aortic aneurysm) Abdomen/Pelvis CT 01/2024: AAA measures up to 5.7 x 4.5 cm, just proximal to the bifurcation CAD (coronary artery disease) Stents x2 (2014) Pulmonary emphysema NICKI (obstructive sleep apnea) 2L O2 + CPAP HS Hypomagnesemia Elevated PSA Medical History Lumbar stenosis History of NV (myocardial infarction) 2015 Aortic root dilation Venous insufficiency Scrotal mass No surgical intervention recommended, under surveillance PTSD (post-traumatic stress disorder) Hx of agent [place] exposure Hyperlipidemia Hx of colonic polyps GERD (gastroesophageal reflux disease) Diabetes mellitus, type 2 NIDDM BPH with obstruction/lower urinary tract symptoms Barretts esophagus Gastric cancer 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, multiple endoscopic resections, s/p [facility] Melanoma Facial, s/p excision Hx of renal calculi Anxiety and depression Surgical History History of anesthesia reaction "Tends to get a lot of mucous buildup in throat during procedures" H/O lumbosacral spine surgery Hx of shoulder surgery right Hx of cholecystectomy History of uvulopalatopharyngoplasty 30 years ago Hx of arthroscopy of shoulder right Hx of lithotripsy Hx of melanoma excision Face Hx of bilateral cataract extraction Hx of colonoscopy History of tooth extraction History of cardiac cath 2015- stents x2 History of lumbar spinal fusion L4-L5 History of esophagogastroduodenoscopy (EGD) Family History Father Cirrhosis Mother Alzheimer disease Other No family history of adverse response to anesthesia Social History Smoking Status: Former smoker Tobacco Type: Cigarettes Age Started Using Tobacco: 13; packs per day: 1; Cigarettes Per Day: 20; Second Hand Exposure: No; Do You Dip or Chew Tobacco: No; Hx Alcohol Use: Yes (quit 40 years ago) Hx Substance Use: Yes (quit 40 years ago) Preferred Language: Danish Communication Ability: Effective Rock Singer Required: No Beliefs That Will Affect Care: None marital status: Current Living Situation: Spouse Feels Safe at Home: Yes Assistive Devices: Cane and Oxygen - at Night Review of Systems Review of Systems: All systems reviewed & are unremarkable except as noted in HPI & below Physical Exam Physical Exam: General: patient resting comfortably, NAD, non-toxic in appearance, AA&O x 4 Skin: warm, dry, intact, no rashes or lesions HEENT: NC/AT, PERRL, EOMI, anicteric sclera, conjunctiva without injection, external ear normal to inspection and nontender, nares patent, moist mucus membranes, dentition intact, no oropharyngeal lesions, neck supple, trachea midline, no LAD, no thyromegaly, no JVD Heart: +S1/S2, regular, 3/6 JACQUELYN at left sternal border, no rubs or gallops, +Reproducible chest wall pain Lungs: equal air entry bilaterally, diffuse end-expiratory wheezing bilaterally, +rhonchi in anterior lung munoz, cleared with coughing Abd: +BS, soft, NT/ND, no masses/organomegaly/ascites Ext: warm, 2+ pulses in UE/LE bilaterally, no clubbing/cyanosis or edema Neuro: nonfocal, patient AA&O x 4, speech intact, no facial droop, moving all extremities on command with equal strength 5/5 Results & Data Results & Data Vital Signs (Past 12 Hours) Vital Signs Pulse Pulse Resp BP BP Pulse Ox O2 Del Method 05/29/24 00:30 91 H 22 153/98 H 93 Nasal Cannula 05/29/24 00:00 75 27 H 135/92 91 05/28/24 23:18 77 24 145/82 H 92 05/28/24 22:17 89 L Nasal Cannula 05/28/24 22:13 80 32 H 151/92 H 89 L Room Air 05/28/24 22:05 144 H 24 99 Room Air O2 Flow Rate 05/29/24 00:30 3 05/29/24 00:00 05/28/24 23:18 05/28/24 22:17 0 05/28/24 22:13 05/28/24 22:05 Laboratory Results Laboratory Results WBC 8.83 K/ul (4.8-10.8) 05/28/24 22:15 RBC 5.05 M/uL (4.70-6.10) 05/28/24 22:15 Hgb 15.6 g/dl (14.0-18.0) 05/28/24 22:15 POC Hgb 13.6 g/dl (14.0-18.0) L 05/28/24 22:37 Hct 47.4 % (42.0-52.0) 05/28/24 22:15 POC Hct 40 % (42-52) L 05/28/24 22:37 MCV 93.9 fL (80.0-100.0) 05/28/24 22:15 MCH 30.9 pg (25.0-34.0) 05/28/24 22:15 MCHC 32.9 g/dL (32.0-36.0) 05/28/24 22:15 RDW Std Deviation 47.1 fL (36.4-46.3) H 05/28/24 22:15 RDW Coeff of Ton 14.2 % (11.5-14.5) 05/28/24 22:15 Plt Count 264 K/uL (130-400) 05/28/24 22:15 MPV 9.2 fL (9.4-12.4) L 05/28/24 22:15 Immature Gran % (Auto) 0.3 % 05/28/24 22:15 Neut % (Auto) 69.5 % 05/28/24 22:15 Lymph % (Auto) 16.9 % 05/28/24 22:15 [place] % (Auto) 10.1 % 05/28/24 22:15 Eos % (Auto) 2.7 % 05/28/24 22:15 Baso % (Auto) 0.5 % 05/28/24 22:15 Neut # (Auto) 6.14 K/uL (1.40-6.50) 05/28/24 22:15 Lymph # (Auto) 1.49 K/uL (1.20-3.40) 05/28/24 22:15 [place] # (Auto) 0.89 K/uL (0.11-0.59) H 05/28/24 22:15 Eos # (Auto) 0.24 K/uL (0.00-0.50) 05/28/24 22:15 Baso # (Auto) 0.04 K/uL (0.00-0.20) 05/28/24 22:15 Immature Gran # (Auto) 0.03 K/uL (0.01-0.20) 05/28/24 22:15 PT 11.0 Seconds (9.0-12.0) 05/28/24 22:15 INR 1.0 (0.9-1.1) 05/28/24 22:15 POC Sodium 140 mmol/L (135-144) 05/28/24 22:37 Sodium 139 mmol/L (136-145) 05/28/24 22:15 POC Potassium 4.4 mmol/L (3.3-5.0) 05/28/24 22:37 Potassium 4.1 mmol/L (3.5-5.1) 05/28/24 22:15 POC Chloride 105 mmol/L (101-112) 05/28/24 22:37 Chloride 104 mmol/L (98-107) 05/28/24 22:15 Carbon Dioxide 28 mmol/L (21-32) 05/28/24 22:15 POC Total CO2 28 mmol/L (24-31) 05/28/24 22:37 Anion Gap 7 (3-11) 05/28/24 22:15 POC Anion Gap 12.0 mmol/L (16-25) L 05/28/24 22:37 POC BUN 23 mg/dl (7-18) H 05/28/24 22:37 BUN 20 mg/dl (6-23) 05/28/24 22:15 Creatinine 1.07 mg/dl (0.6-1.4) 05/28/24 22:15 POC Creatinine 1.2 mg/dl (0.6-1.3) 05/28/24 22:37 Est Cr Clr Drug Dosing Not Reportable 05/28/24 22:15 eGFR 71.92 05/28/24 22:15 BUN/Creatinine Ratio 18.7 (10-20) 05/28/24 22:15 Glucose 126 mg/dl (70-99(Fasting)) H 05/28/24 22:15 POC Glucose (other) 122 mg/dl (70-99) H 05/28/24 22:37 Calcium 10.4 mg/dl (8.6-10.3) H 05/28/24 22:15 POC Ioniz Calcium Diane 1.19 mmol/l (1.12-1.32) 05/28/24 22:37 Total Bilirubin 0.6 mg/dl (0.2-1.0) 05/28/24 22:15 AST 22 U/L (13-39) 05/28/24 22:15 ALT 25 U/L (7-52) 05/28/24 22:15 Alkaline Phosphatase 83 U/L (34-104) 05/28/24 22:15 Troponin I High Sens 20.7 pg/ml (0-20) H 05/29/24 00:07 Total Protein 7.9 gm/dl (6.0-8.3) 05/28/24 22:15 Albumin 4.8 gm/dl (3.4-5.0) 05/28/24 22:15 Globulin 3.1 gm/dl (2.5-4.0) 05/28/24 22:15 Albumin/Globulin Ratio 1.5 (0.9-2) 05/28/24 22:15 Lipase 29 U/L (11-82) 05/28/24 22:15 Impressions Chest CTA 05/28/24 22:21 Exam(s): CTA CHEST W/WO Contrast IV Amt: 118 ml opti 320 EXAM: CT Angiography Chest Without and With Intravenous Contrast CLINICAL HISTORY: Reason for exam: chest pain; bilateral arm numbness; hypoxia. TECHNIQUE: Axial computed tomographic angiography images of the chest without and with intravenous contrast. CTDI is 25.14 mGy and DLP is 1834.52 mGy-cm. Automated exposure control was utilized for the study. A dose lowering technique was utilized adhering to the principles of ALARA. MIP reconstructed images were created and reviewed. CONTRAST: Patient received 118 ml opti 320 of IV contrast COMPARISON: CT chest on 10/12/2018 and 09/07/2020 FINDINGS: Pulmonary arteries: Unremarkable. No definite pulmonary embolus identified. Aorta: Atherosclerotic changes of the aorta. No aortic aneurysm or dissection. Lungs: Nonspecific 4 mm nodule in the right upper lobe. Further evaluation could be performed in 12 months. Emphysematous changes. Dependent and bibasilar atelectasis. No focal consolidation. Pleural space: Nonspecific prominent pleural fat along the left anterolateral mid chest. No significant effusion. No pneumothorax. Heart: Unremarkable. No cardiomegaly. No significant pericardial effusion. No evidence of RV dysfunction. Bones/joints: Degenerative changes of the spine. No acute fracture. No dislocation. Soft tissues: See above. Lymph nodes: Unremarkable. No enlarged lymph nodes. IMPRESSION: 1. No definite pulmonary embolus identified. 2. Atherosclerotic changes of the aorta. No aortic aneurysm or dissection. 3. Nonspecific 4 mm nodule in the right upper lobe. Further evaluation could be performed in 12 months. 4. Nonspecific prominent pleural fat along the left anterolateral mid chest. 5. Emphysematous changes. Dependent and bibasilar atelectasis. No focal consolidation. Electronically signed by: Phyllis Gutiérrez M.D. 05/28/24 23:28 PM ECG Additional Comments: EKG with sinus rhythm with sinus arrhythmia, 1st degree AV block with NT=966, no acute ischemic changes present Code Status & VTE Plan VTE Prophylaxis Plan VTE Prophylaxis will be ordered: Yes PG Care Time/CCT Total # of Minutes Spent Total Time Spent with Patient: Total time spent is greater than 50% in coordination of care (as documented) at patient's floor/unit and/or counseling patient: Coding Level of Care Code 00638 INT INP/OBS CARE 2/55MIN Diagnoses Chest pain R07.9 CAD (coronary artery disease) I25.10 NICKI (obstructive sleep apnea) G47.33 Diabetes mellitus, type 2 E11.9 Anxiety F41.9
[2024-05-29] MEDS: ASPIRIN CHEW 324 MG PO STA (01:31)
[2024-05-29] MEDS: hydrOXYzine HCl 25 MG TAB PO STA (01:32)
[2024-05-29] MEDS: ALUMINUM/MAGNESIUM SUSP 30 ML UDC PO STA (01:32)
[2024-05-29] MEDS ORDERED: DEXTROSE 50% 50 ML SYRINGE IV PRN (03:27)
[2024-05-29] MEDS ORDERED: CARBOHYDRATES FOR HYPOGLYCEMIA PO PRN (03:27)
[2024-05-29] MEDS ORDERED: GLUCOSE 40% GEL 15 GM TUBE PO PRN (03:27)
[2024-05-29] MEDS ORDERED: HYDROmorphone INJ 0.5 MG/0.5 ML SYR IV PRN ×2 (03:27)
[2024-05-29] MEDS ORDERED: ALBUT/IPRATROP 3MG/0.5MG NEB 3 ML VIAL NEB PRN (03:27)
[2024-05-29] MEDS ORDERED: GLUCOSE 10 TAB/TUBE PO PRN (03:27)
[2024-05-29] MEDS ORDERED: GLUCAGON FOR INJ 1 MG VIAL SQ PRN (03:27)
[2024-05-29] MEDS: LIDOCAINE 5% 1 PATCH TD STA (04:05)
[2024-05-29 05:15] LABS: Troponin I High Sensitivity 22.8 pg/ml (0-20)
[2024-05-29] MEDS: ENOXAPARIN INJ 40 MG/0.4 ML SYR SQ SCH (06:26)
[2024-05-29] MEDS: ACETAMINOPHEN 325 MG TAB PO PRN (06:26)
[2024-05-29] MEDS: MAGNESIUM SULFATE / D5W 1 GM/100 ML BAG IV SCH (07:24)
--- NOTE | 2024-05-29 07:24 | XRay Report ---
XR chest 1V portable CLINICAL HISTORY: Chest pain, nonspecific COMPARISON STUDY: Chest radiograph November 19, 2023. Chest CT February 02, 2024. FINDINGS: There is no pneumothorax or pleural effusion. An oval-shaped left lower lung density is pre sent. Prominence of right mediastinal contour is unchanged. Cardiomegaly is unchanged. Bibasilar opac ities favor atelectasis. There is no consolidation to suggest pneumonia. No evidence for pulmonary ed angela. IMPRESSION: 1. Oval-shaped left lower lung density which corresponds to an indeterminate fat containing pleural d ensity better depicted on subsequent chest CT. 2. Bibasilar opacities suggestive of atelectasis. ACT 112: Negative or not required by law. Electronically signed by: Jake De Jesus M.D. 05/29/2024 7:21 AM
[2024-05-29] MEDS: oxyCODONE HCL IR 5 MG TAB (IMMEDIATE RELEASE) PO PRN (07:38)
[2024-05-29] MEDS: hydrOXYzine HCl 25 MG TAB PO PRN (07:43)
[2024-05-29] MEDS: ONDANSETRON INJ 2 MG/ML 2 ML VIAL IV PRN (07:43)
[2024-05-29] MEDS ORDERED: NON-FORMULARY MEDICATION (Doxycycline Hyclate 100 mg tablet) PO SCH (09:00)
[2024-05-29] MEDS: NICOTINE 21 MG/24 HR TDSY TD SCH ×2 (09:51→21:55)
[2024-05-29] MEDS: amLODIPine BESYLATE 5 MG TAB PO SCH (09:51)
[2024-05-29] MEDS: ASPIRIN 81 MG ECTAB PO SCH (09:51)
[2024-05-29] MEDS: DOXYCYCLINE HYCLATE 100 MG CAP PO SCH (09:51)
[2024-05-29] MEDS: INSULIN ASPART PER UNIT CHARGE SC SCH (09:53)
--- NOTE | 2024-05-29 14:08 | Electrocardiogram Report ---
Test Reason : Blood Pressure : */* mmHG Vent. Rate : 77 BPM Atrial Rate : 77 BPM P-R Int : 210 ms QRS Dur : 60 ms QT Int : 328 ms P-R-T Axes : 72 -17 89 degrees QTcB Int : 371 ms Sinus rhythm with sinus arrhythmia with 1st degree A-V block Low voltage QRS Cannot rule out Anteroseptal infarct (cited on or before 25-Mar-2023) Abnormal ECG When compared with ECG of 19-Nov-2023 19:35, QRS duration has decreased Confirmed by Kevin Maradiaga ([id number]) on 05/29/2024 2:07:45 PM Referred By: REFERRED SELF Confirmed By: Kevin Maradiaga
[2024-05-29] MEDS ORDERED: IBUPROFEN 200 MG/10 ML UDC PO SCH (17:00)
[2024-05-29] MEDS: IBUPROFEN 600 MG TAB PO SCH (18:24)
[2024-05-29] MEDS: COLCHICINE 0.6 MG TAB PO SCH (18:24)
--- NOTE | 2024-05-29 19:33 | XCELERA ---
[id number]
[2024-05-29] MEDS ORDERED: Nursing to Pharmacy Communication SCH (20:45)
[2024-05-29] MEDS: PANTOprazole 40 MG TAB PO SCH (21:53)
[2024-05-29] MEDS: DICLOFENAC SOD 1% GEL 100 GM TUBE EXT SCH (21:54)
[2024-05-30 06:07] LABS: Hematocrit (blood only) 41.1 % (42.0-52.0); Hemoglobin 14.1 g/dl (14.0-18.0); Mean Corpuscular Hemoglobin 31.8 pg (25.0-34.0); Mean Corpuscular Hgb Conc 34.3 g/dL (32.0-36.0); Mean Corpuscular Volume 92.6 fL (80.0-100.0); Mean Platelet Volume 9.8 fL (9.4-12.4); Platelet Count 234 K/uL (130-400); RDW Coefficient of Variation 13.8 % (11.5-14.5); RDW Standard Deviation 46.1 fL (36.4-46.3); Red Blood Count 4.44 M/uL (4.70-6.10); White Blood Count 5.62 K/ul (4.8-10.8)
[2024-05-30 06:27] LABS: Anion Gap 5 (3-11); BUN Creatinine Ratio 17.4 (10-20); Blood Urea Nitrogen 16 mg/dl (6-23); Calcium 8.7 mg/dl (8.6-10.3); Carbon Dioxide 26 mmol/L (21-32); Chloride 105 mmol/L (98-107); Creatinine Clr Calc Pharmacy 81.4 ml/min; Glucose 109 mg/dl (70-99(Fasting)); Sodium 136 mmol/L (136-145)
[2024-05-30 07:57] VITALS: TEMP 98.1
[2024-05-30 11:58] VITALS: BP 163/84; PULSE 84; RESP 18; O2SAT 96
--- NOTE | 2024-05-30 14:22 | Electrocardiogram Report ---
Test Reason : Blood Pressure : */* mmHG Vent. Rate : 73 BPM Atrial Rate : 73 BPM P-R Int : 246 ms QRS Dur : 80 ms QT Int : 336 ms P-R-T Axes : 51 -4 66 degrees QTcB Int : 370 ms Sinus rhythm with 1st degree A-V block Low voltage QRS Cannot rule out Anteroseptal infarct (cited on or before 25-Mar-2023) Abnormal ECG When compared with ECG of 28-May-2024 22:11, No significant change was found Confirmed by Kevin Maradiaga ([id number]) on 05/30/2024 2:22:17 PM Referred By: REFERRED SELF Confirmed By: Kevin Maradiaga
--- NOTE | 2024-06-03 10:33 | Discharge Summary ---
Discharge Summary Date of Service May 30, 2024 Principal Dx & Hospital Course #1 = Principal Diagnosis (1) Chest pain: 74yo male with history of CAD s/p DC in 2014 with placement of 2 stents presenting with chest pain. Patient with mild elevation of troponin on arrival -23. Repeat has declined to 20.7. No acute ischemic changes present on EKG. Patient presently chest pain free. Reproducible on exam. Suspect non-cardiac chest pain. Possibly musculoskeletal given reproducible nature. Possible pericarditis given positional and pleuritic nature of his pain. -Observation to medical with telemetry -Continue ASA, Atorvastatin -Dilaudid PRN -Lidoderm patch Will treat for acute pericarditis: ibuprofen and colchicine. will start to taper ibuprofen in 2 weeks 3 month course of colchicine. will also add pantoprazole. (2) CAD (coronary artery disease): Patient with known CAD s/p DC in 2014 with stent placement x 2. He follows with Cardiology. Reports no exertional chest pain, however, he has noted progression of exertional dyspnea over the years. Likely largely secondary to his COPD. He recently had a nuclear stress test performed and reports no significant findings. -Continue ASA -Continue Atorvastatin -Continue Losartan (3) NICKI (obstructive sleep apnea): Chronic. Stable. Patient reports compliance with his home CPAP, he uses supplemental O2 at night as well -Continue CPAP qHS -Supplemental O2 at night required 2 liters of oxygen on ambulation; likely progression of emphysema (4) Diabetes mellitus, type 2: Overall fairly well controlled. Last [id number]=9.2 on 03/17/24. BSG today 126. Patient is compliant with his Metformin. He reports a recent dose change to 500mg po qAM and 1000mg po qPM -ISS -Goal blood sugar 110 - 140 (5) Anxiety: Patient reports anxiety - is worried about having a panic attack in the hospital. -Continue home SSRI -hydroxyzine 25mg po TID as needed for anxiety Plan Chronic Medical Conditions: COPD - patient reports ongoing cough and SOB, unchanged from baseline -DuoNeb PRN -Continue Doxycycline 100mg po BID - patient has been on this since 05/25 for sinus infection GERD - chronic, stable -Continue Protonix 40mg po daily Hypertension - chronic, mildly elevated blood pressure in ER -Continue Amlodipine 5mg po daily -Continue Losartan 50mg po daily BPH - chronic, stable -Continue Flomax Tobacco use -Cessation counseling -Nicotine patch Admission HPI Per Admitting Provider Nina Kwon is a pleasant 74yo male with history of CAD s/p DC in 2015 with stent placement x 2 presenting to [facility] ER with chest pain. Patient reports having an episode of chest pain 1 week ago His pain at that time lasted approximately 15 minutes then resolved on its own. He thought the pain at that time was likely musculoskeletal because earlier in the day he was doing some work and pulling himself up and down on a tractor. This evening he was sleeping when he woke around 20:00 with left sided chest discomfort. He reports the pain was 10/10 in severity, sharp and stabbing in nature. Pleuritic in nature - reports very sharp and severe pain with deep breathing. He took a SL Nitro x 1 at 20:15 with some mild improvement in the pain then another Nitro at 20:30. Patient had some shortness of breath and numbness of his arms bilaterally. No nausea, diaphoresis or worsening dizziness (has baseline dizziness). Patient did take a 3rd Nitro en route to the hospital. Pain is somewhat positional - better with sitting up. Non-exertional. No heart burn symptoms. In the ER he is afebrile, HD stable Pain improved with administration of Dilaudid ER Course: Fentanyl 50mcg Dilaudid 1mg Discharge Exam General: patient resting comfortably, NAD, non-toxic in appearance, AA&O x 4 Skin: warm, dry, intact, no rashes or lesions HEENT: NC/AT, PERRL, EOMI, anicteric sclera, conjunctiva without injection, external ear normal to inspection and nontender, nares patent, moist mucus membranes, dentition intact, no oropharyngeal lesions, neck supple, trachea midline, no LAD, no thyromegaly, no JVD Heart: +S1/S2, regular, 3/6 JACQUELYN at left sternal border, no rubs or gallops, no chest pain. Lungs: equal air entry bilaterally, diffuse end-expiratory wheezing bilaterally, +rhonchi in anterior lung munoz, cleared with coughing Abd: +BS, soft, NT/ND, no masses/organomegaly/ascites Ext: warm, 2+ pulses in UE/LE bilaterally, no clubbing/cyanosis or edema Neuro: nonfocal, patient AA&O x 4, speech intact, no facial droop, moving all extremities on command with equal strength 5/5 Discharge Plan Discharge Items Patient Disposition: Home - Self-Care Reason For Visit: CHEST PAIN Discharge Diagnosis: chest pain Activity: Resume your previous activity Non-emergency contact: Primary Care Provider Call non-emergency contact if: you have any medication questions Follow-up/Referrals: Lucio Ayala MD [Primary Care Provider] - (PLEASE CALL YOUR PRIMARY CARE PROVIDER TO SCHEDULE A HOSPITAL DISCHARGE FOLLOW-UP APPOINTMENT WITHIN 7-10 DAYS) Diet: Heart Healthy Addtl Attending Provider Instructions: You were evaluated for chest pain. Thankfully this does not appear to be stemming from coronary artery disease, nor is this a clot in your long. We will treat you for pericarditis. You will be on Ibuprofen 600 mg three times a day for 2 weeks, then this will be tapered by your PCP every week. You will also be on colchicine 0.6 mg Twice a day this will be on for 3 months, no tapering required for colchicine. You will also be on pantoprazole to protext your stomach lining as you take a higher dose of ibuprofen. I sent nicotine patches to the pharmacy, in case you want to try quitting. You will also require 2 liters nasal cannula when you ambulate. Recommend followup with your PCP in 1-2 weeks. Pending Studies at Discharge: No Stand-Alone Forms: [facility], Smoking Cessation Medications and DC Order Prescriptions: New pantoprazole 40 mg Tablet,Delayed Release (Dr/Ec) 40 mg PO DAILY Qty: 30 0RF nicotine [Nicoderm CQ] 21 mg/24 hr Patch 24 Hour 1 patch transdermal HS Qty: 30 0RF colchicine [Colcrys] 0.6 mg Tablet 0.6 mg PO BID Qty: 60 0RF Continued (DME) CPAP [place] [facility] [place] See Dose Instructions .ROUTE .MEDSUPPLY Qty: 1 0RF Dose Instruction: As directed Rx Instructions: 11 cm H2O nitroglycerin 0.4 mg tablet, sublingual 0.4 mg SL Q5M PRN (Reason: Chest Pain) (DME) nebulizers [facility] [place] See Dose Instructions .ROUTE .MEDSUPPLY Qty: 1 0RF Dose Instruction: As directed Rx Instructions: As directed triamcinolone acetonide 0.1 % cream 1 applic topical DAILY azelastine 137 mcg (0.1 %) spray,non-aerosol 1 spray intranasal BID PRN (Reason: Runny Nose) Rx Instructions: administer into each nostril pantoprazole 40 mg Tablet,Delayed Release (Dr/Ec) 40 mg PO BID aspirin [Kari Low Dose Aspirin] 81 mg Tablet,Delayed Release (Dr/Ec) 81 mg PO QAM loperamide 2 mg Capsule 2 mg PO TID PRN (Reason: Diarrhea) Patient Comments: haven't taken in weeks atorvastatin 40 mg tablet 40 mg PO HS multivitamin Tablet 1 tab PO QAM losartan 50 mg Tablet 50 mg PO QAM acetaminophen 325 mg Tablet 975 mg PO TID MDD 3G/24HR amlodipine 5 mg Tablet 5 mg PO QAM fluticasone propionate [Flonase Allergy Relief] 50 mcg/actuation [place],Suspension 1 spray INTRANASAL DAILY PRN (Reason: Congestion) Cbd Oil 2 - 3 drp PO HS guaifenesin 200 mg Tablet 200 mg PO BID PRN (Reason: Cough) Qty: 0 magnesium oxide 420 mg Tablet 420 mg PO HS Rx Instructions: If loose stools occur, reduce to 210mg by mouth at bedtime albuterol sulfate 2.5 mg /3 mL (0.083 %) Solution For Nebulization 2.5 mg INHALATION QID PRN (Reason: sob/cough/wheezing) albuterol sulfate 90 mcg/actuation Hfa Aerosol Inhaler 2 puff INHALATION QID PRN (Reason: sob/cough/wheezing) metformin 500 mg Tablet Extended Release 24 Hr See Rx Instructions .ROUTE .COMPLEX Rx Instructions: Take 500mg by mouth every morning and 1000mg by mouth every evening doxycycline hyclate 100 mg tablet 100 mg PO DAILY Rx Instructions: Start Date 05/25/24 x20 day supply loratadine [Claritin] 10 mg Tablet 10 mg PO DAILY PRN (Reason: Seasonal Allergies) Lactobacillus acidophilus 1 billion cell Tablet 2,000 mmu cells PO BID Changed ibuprofen [Motrin IB] 200 mg tablet 600 mg PO TID Qty: 0 0RF Discharge Orders: Discharge Order (Routine); Ordered 05/30/24 Ordered By: Gerardo Mcmahon Admission Data Admit Date/Time: 05/29/24 00:53 Attending Provider: Gerardo Mcmahon Admit Provider: Mariel Garrison Primary Care Provider: Lucio Ayala Other Providers: [facility] Other Interventions: Discharge Summary Assessment (RN) Last Done: 05/30/24 11:57 Hospital Stay Data Consultations 05/29/24 00:18 ED Decision to Admit Stat Diagnostic Imagining Performed 05/28/24 22:21 CTA chest dissec wo/w con [CT angio chest dissec wo/w con] Stat Pending Results Patient Have Any Pending Studies at Discharge: No Discharge Instructions Given to Patient (Per Discharging Provider) You were evaluated for chest pain. Thankfully this does not appear to be stemming from coronary artery disease, nor is this a clot in your long. We will treat you for pericarditis. You will be on Ibuprofen 600 mg three times a day for 2 weeks, then this will be tapered by your PCP every week. You will also be on colchicine 0.6 mg Twice a day this will be on for 3 months, no tapering required for colchicine. You will also be on pantoprazole to protext your stomach lining as you take a higher dose of ibuprofen. I sent nicotine patches to the pharmacy, in case you want to try quitting. You will also require 2 liters nasal cannula when you ambulate. Recommend followup with your PCP in 1-2 weeks. Total Time Total Time Spent Total Time Spent (In Minutes): 32 Coding Level of Care Code 35547 INP/OBS DISCH >30 MIN Diagnoses Chest pain R07.9 CAD (coronary artery disease) I25.10 NICKI (obstructive sleep apnea) G47.33 Diabetes mellitus, type 2 E11.9 Anxiety F41.9
== END 2024-05-30 13:12 | disposition home or self-care (01) | DRG 313 ==
LOC: ED 22:04 → EDINP 05-29 00:53 → SUATTDRO 05-29 00:53 → 2N 05-29 03:41